=== PATIENT | female | born 1935 | race Caucasian/White ===

== ENCOUNTER → 2021-01-08 10:05 | Outpatient (BNVA) | payer MEDICARE, SELFPAY | PROVIDERS: Family Provider Family Medicine; PCP Family Medicine; Visit Provider Family Medicine | DX: B35.1 Tinea unguium (principal); E03.9 Hypothyroidism, unspecified; R53.83 Other fatigue; I48.0 Paroxysmal atrial fibrillation; M54.42 Lumbago with sciatica, left side; G89.29 Other chronic pain; I73.9 Peripheral vascular disease, unspecified; K21.9 Gastro-esophageal reflux disease without esophagitis; R53.82 Chronic fatigue, unspecified | CPT/HCPCS: 82607; 82652; 84439; 84443; 84481; 85025 ==

== ENCOUNTER → 2022-02-27 09:59 | Outpatient (BNVA) | payer MEDICARE, SELFPAY | PROVIDERS: Family Provider Family Medicine; Visit Provider Family Medicine | DX: I10 Essential (primary) hypertension (principal); R60.9 Edema, unspecified; E03.9 Hypothyroidism, unspecified; R53.83 Other fatigue; R53.82 Chronic fatigue, unspecified | CPT/HCPCS: 80048; 84439; 84443; 84481; 85025 ==

== ENCOUNTER 2022-08-22 10:34 | Outpatient (CLI) | payer MEDICARE, SELFPAY ==
--- NOTE | 2022-08-22 10:45 | USCV_ITS ---
Georgia Cerna Age: 86 Gender: F : 1935 Exam Date: 08/22/2022 10:40 Ordering Phys: Ramila Jasso MD Technologist: [place] [facility] [place]: fluid overload BP: 120 / 75 HR: 95 Rhythm: Sinus Technical Quality: Adequate MEASUREMENTS (Male / Female) Normal Values 2D ECHO LV Diastolic Diameter PLAX 4.5 cm 4.2 - 5.9 / 3.9 - 5.3 cm LV Systolic Diameter PLAX 2.9 cm IVS Diastolic Thickness 1.0 cm 0.6 - 1.0 / 0.6 - 0.9 cm IVS Systolic Thickness 1.8 cm LVPW Diastolic Thickness 1.1 cm 0.6 - 1.0 / 0.6 - 0.9 cm LVPW Systolic Thickness 1.0 cm LVOT Diameter 2.0 cm LV Ejection Fraction 2D Teich 64.7 % LV Ejection Fraction MOD 2C 58.9 % LV Ejection Fraction 2C AL 58.5 % LA Diameter 4.3 cm Aorta at Sinotubular Diameter 2.5 cm M-MODE Aortic Annulus Diameter 3.6 cm LA Ao Ratio MM 1.1 MV E Point Septal Separation 0.9 cm DOPPLER AV Peak Velocity 164.7 cm/s LVOT Peak Velocity 81.0 cm/s AV Area Cont Eq vti 1.3 cm squared AV Area Cont Eq pk 1.5 cm squared MV Area PHT 5.0 cm squared Mitral E to A Ratio 2.4 MV E' Velocity 69.0 cm/s Mitral E to MV E' Ratio 7.1 Mitral E to LV E' Lateral Ratio 7.0 Mitral E to LV E' Septal Ratio 7.1 TR Peak Velocity 319.3 cm/s TR Peak Gradient 40.8 mmHg TV Peak E Velocity 170.0 cm/s Right Atrial Pressure 3.0 mmHg Pulmonary Artery Systolic Pressu 43.8 mmHg RV Acceleration Time 0.1 s FINDINGS Left Ventricle Left ventricle is normal in size. LV systolic function is borderline normal with EF of 50 to 55%. No regional wall motion abnormalities are seen. Diastolic function is indeterminate because of atrial fibrillation. Right Ventricle Grossly normal Right Atrium Dilated Left Atrium Dilated Mitral Valve Structurally normal mitral valve. Moderate mitral regurgitation. Aortic Valve Aortic valve is thickened. Mild aortic stenosis with a mean gradient across aortic valve of 10 mmHg. Tricuspid Valve Moderate to severe tricuspid regurgitation. RVSP is 55 to 60 mmHg. This is consistent with moderate pulmonary hypertension Pulmonic Valve Not well-visualized Pericardium Normal pericardium without effusion. Aorta Normal ascending aorta dimension. IVC CONCLUSIONS LV systolic function is borderline normal with EF of 50 to 55%. Biatrial enlargement noted Moderate mitral regurgitation Aortic valve is thickened. Mild aortic stenosis with mean gradient across aortic valve of 10 mmHg Moderate to severe tricuspid regurgitation Moderate pulmonary hypertension Compared to prior echocardiogram from 07/13/2018, patient now has moderate to severe tricuspid regurgitation, mild aortic stenosis and pulmonary hypertension has progressed and is moderate now Golden Gross MD (Electronically Signed) Final Date: 25 August 2022 12:57 S
== END 2022-08-22 10:35 | disposition home or self-care (01) ==
LOC: RAD 10:35
PROVIDERS: PCP Family Medicine; Visit Provider Family Medicine
DX: E87.79 Other fluid overload (principal); I10 Essential (primary) hypertension; I08.3 Combined rheumatic disorders of mitral, aortic and tricuspid valves; I27.20 Pulmonary hypertension, unspecified
CPT/HCPCS: 93306

== ENCOUNTER → 2023-04-15 11:11 | Outpatient (BNVA) | payer MEDICARE, SELFPAY | PROVIDERS: PCP Family Medicine; Visit Provider Family Medicine | DX: E03.9 Hypothyroidism, unspecified (principal); E78.5 Hyperlipidemia, unspecified; I10 Essential (primary) hypertension; D50.0 Iron deficiency anemia secondary to blood loss (chronic) | CPT/HCPCS: 80053; 80061; 84443; 85025 ==

== ENCOUNTER → 2023-10-16 10:12 | Outpatient (BNVA) | payer MEDICARE, SELFPAY | PROVIDERS: PCP Family Medicine; Visit Provider Family Medicine | DX: K21.9 Gastro-esophageal reflux disease without esophagitis (principal); E78.5 Hyperlipidemia, unspecified; E03.9 Hypothyroidism, unspecified; M54.42 Lumbago with sciatica, left side; G89.29 Other chronic pain; I10 Essential (primary) hypertension; R60.9 Edema, unspecified; D64.9 Anemia, unspecified | CPT/HCPCS: 80048; 84439; 84443; 84481; 85025 ==

== ENCOUNTER → 2023-10-21 14:54 | Outpatient (BNVA) | payer MEDICARE, SELFPAY | PROVIDERS: PCP Family Medicine; Visit Provider Podiatrist Foot & Ankle Surgery | DX: L97.512 Non-pressure chronic ulcer of other part of right foot with fat layer exposed (principal); L60.3 Nail dystrophy; I73.9 Peripheral vascular disease, unspecified | CPT/HCPCS: 99203 ==

== ENCOUNTER → 2023-10-28 10:44 | Outpatient (BNVA) | payer MEDICARE, SELFPAY | PROVIDERS: PCP Family Medicine; Visit Provider Podiatrist Foot & Ankle Surgery | DX: L97.512 Non-pressure chronic ulcer of other part of right foot with fat layer exposed (principal); L60.3 Nail dystrophy; I73.9 Peripheral vascular disease, unspecified | CPT/HCPCS: 99213 ==

== ENCOUNTER → 2023-11-20 10:52 | Outpatient (BNVA) | payer MEDICARE, SELFPAY | PROVIDERS: PCP Family Medicine; Visit Provider Podiatrist Foot & Ankle Surgery | DX: L97.512 Non-pressure chronic ulcer of other part of right foot with fat layer exposed (principal); L60.3 Nail dystrophy; I73.9 Peripheral vascular disease, unspecified | CPT/HCPCS: 99213 ==

== ENCOUNTER → 2024-01-26 10:07 | Outpatient (BNVA) | payer MEDICARE, SELFPAY | PROVIDERS: PCP Family Medicine; Visit Provider Podiatrist Foot & Ankle Surgery | DX: L97.512 Non-pressure chronic ulcer of other part of right foot with fat layer exposed (principal); L60.3 Nail dystrophy; I73.9 Peripheral vascular disease, unspecified | CPT/HCPCS: 11721 ==

== ENCOUNTER 2024-02-18 23:05 | Inpatient (IN) | payer MEDICARE, SELFPAY ==
[2024-02-18 23:06] VITALS: BP 108/59; PULSE 87; RESP 18; TEMP 38.1; O2SAT 90; BMI 28.9
--- NOTE | 2024-02-18 23:20 | CTR_ITS ---
PROCEDURE INFORMATION: Exam: CT Head Without Contrast Exam date and time: 02/18/2024 11:47 PM Age: 88 years old Clinical indication: Altered mental status/memory loss; Additional info: Altered mental status, a fib, unresponsive TECHNIQUE: Imaging protocol: Computed tomography of the head without contrast. Radiation optimization: All CT scans at this facility use at least one of these dose optimization techniques: automated exposure control; mA and/or kV adjustment per patient size (includes targeted exams where dose is matched to clinical indication); or iterative reconstruction. COMPARISON: No relevant prior studies available. RADIATION DOSE METRICS: Total DLP (mGy-cm): 843.2 FINDINGS: Brain: No acute intra- or extra axial fluid collections are identified. The basal cisterns are patent. No mass effect or midline shift is seen. The manrique-white matter differentiation is normal. Periventricular hypoattenuation are nonspecific but likely the sequela of chronic small vessel ischemic disease. Cerebral ventricles: Moderate cerebral volume loss and ex vacuo dilation of the ventricles.. Paranasal sinuses: There is mild paranasal sinus disease.. Mastoid air cells: The mastoid air cells appear grossly clear. Orbital cavities: The patient is status post cataract extraction.. Bones/joints: No acute calvarial fracture is identified. Soft tissues: No soft tissue abnormalities identified. Vasculature: There are atherosclerotic calcifications of the carotid siphons and faintly the V4 segments of the vertebral arteries. CT/CT head wo con* [id number] IMPRESSION: 1. No evidence of acute intracranial hemorrhage, mass effect, or midline shift. 2. Please note that CT is insensitive to none hemorrhagic strokes an MRI of the brain should be considered if there is clinical concern for acute cerebral ischemia.
--- NOTE | 2024-02-18 23:20 | XRR_ITS ---
PROCEDURE INFORMATION: Exam: XR Chest Exam date and time: 02/18/2024 11:53 PM Age: 88 years old Clinical indication: Other: AMS, afib; Additional info: AMS fever TECHNIQUE: Imaging protocol: Radiologic exam of the chest. Views: 1 view. COMPARISON: CR XR chest 1V portable [id number] 07/12/2022 3:02 PM FINDINGS: Lungs: Numerous bilateral ill-defined small , subcentimeter nodular opacities throughout both lungs, significantly progressed compared to the prior with enlargement of the nodular opacities and interval development of new nodular opacities. The left CP angle is obscured which could be related to atelectasis, inflammation, pneumonia, or small pleural effusion. Pleural spaces: No pneumothorax. Heart/Mediastinum: There is cardiomegaly. Vasculature: The thoracic aorta is tortuous and atherosclerotic. Diaphragm: The left hemidiaphragm is elevated. Bones/joints: There are degenerative changes of the spine and shoulder joints. Post kyphoplasty changes are seen in the thoracolumbar spine. The bones are osteopenic. XR/XR chest 1V portable [id number] IMPRESSION: 1. Numerous bilateral ill-defined small, subcentimeter nodular opacities throughout both lungs, new/progressed compared to the prior. Finding is nonspecific. Findings could represent inflammation, or infection such as bronchopneumonia, sequela of pulmonary edema, or underlying pulmonary nodules. Continued attention on follow-up is recommended. 2. Cardiomegaly and mild pulmonary edema. 3. Post kyphoplasty changes in the thoracolumbar spine.
--- NOTE | 2024-02-18 23:20 | ECG_ITS ---
[facility] Test Date: 2024-02-18 Pat Name: Georgia Cerna Department: Room: Gender: Female [employer]: : 1935 Requested By: [facility] Order Number: [id number] Abrahan MD: Lata Wood M.D. Measurements Intervals [place] Rate: 74 P: 0 IN: 0 QRS: 121 QRSD: 110 T: 96 QT: 364 QTc: 405 Interpretive Statements ATRIAL FIBRILLATION POSSIBLE RIGHT VENTRICULAR HYPERTROPHY [SOME/ALL OF: PROMINENT R IN V1, LATE TRANSITION, RAD, OSCAR, SSS] MODERATE ST DEPRESSION [0.05+ mV ST DEPRESSION] INTERPRETATION BASED ON A DEFAULT AGE OF 40 YEARS Compared to ECG 07/12/2022 15:00:40 Atrial abnormality now present ST (T wave) deviation now present Right-axis deviation no longer present Myocardial infarct finding no longer present Electronically Signed On 02-19-2024 14:01:09 CDT by Lata Wood M.D. [id number]
--- NOTE | 2024-02-18 23:20 | ED_ITS ---
Documented by User: Juno Heart DO 02/19/24 05:45 HPI - General Adult 2 General: Chief complaint: Altered Mental Status Stated complaint: AMS Time Seen by Provider: 02/18/24 23:09 Limitations: altered mental status History of Present Illness: Patient presents to the ER via [facility] with decreased mental status. Patient has altered mental status and is only responsive to painful stimuli. Patient is normally able to walk talk and hold a coherent conversation. Today patient went to sleep around 1130 and was not bothered until about 9 PM when someone tried to wake her up and is unable to do that. Patient is only responsive to painful stimuli. She will flinch with pain. Patient is a DNR Review of Systems 2 General: Reports: ROS unobtainable due to mental status PFSH ED 2 PFSH: Medical History Peripheral edema Chronic constipation PVD (peripheral vascular disease) Atrial fibrillation GERD (gastroesophageal reflux disease) Hypothyroid Chronic low back pain Dyslipidemia Surgical History H/O knee surgery H/O: hysterectomy History of cholecystectomy History of bladder surgery Family History Other CAD (coronary artery disease) Stroke Social History Smoking and tobacco/nicotine status: never used tobacco/nicotine Alcohol intake: never Substance/Drug Use: never Female Reproductive History: Spontaneous abortions: No Physical Exam 2 HENMT: COMMON NORMALS: normocephalic, atraumatic, external ears normal and Normal external nose present; oral mucous membranes not moist (Dry mucous membranes) HEAD & SCALP: n ormocephalic and atraumatic NOSE: Normal external nose present EXTERNAL EAR: Yes external ears normal Eye: COMMON NORMALS: Equal, round and reactive pupils present PUPIL: Yes Equal, round and reactive pupils present Neck/C-Spine: COMMON NORMALS: no JVD Chest: COMMONS NORMALS: normal inspection of the chest and normal palpation of entire chest wall Resp: COMMON NORMALS: normal respiratory effort, No retractions, No use of accessory muscles and clear to auscultation bilaterally AUSCULTATION: clear to auscultation bilaterally Cardio: COMMON NORMALS: no JVD, regular rate, S1 normal heart sound present, S2 normal heart sound present, No clicks present (Cardio), No murmurs present (Cardio) and No rub (Cardio); negative for regular rhythm (Irregularly irregular rhythm) RATE: regular rate RHYTHM: abnormal rhythm (Irregularly irregular rhythm) HEART SOUNDS: S1 normal heart sound present and S2 normal heart sound present GI: COMMON NORMALS: Normal to inspection, nondistended, normoactive bowel sounds present, Soft to palpation, non-tender, No hepatosplenomegaly present and no masses PALPATION: Yes Soft to palpation and Yes No hepatosplenomegaly present Neuro: OTHER: Patient withdraws from painful stimuli otherwise is nonresponsive. Course 2 Reevaluation(s): Reevaluation #1: Upon reevaluating the patient patient after fluid and antibiotics patient is now alert oriented and is able to hold a conversation with you. Vital Signs: Vital signs: Vital Signs Temperature 99.9 F H 02/19/24 00:38 Pulse Rate 94 02/19/24 09:48 Respiratory Rate 20 H 02/19/24 09:48 Blood Pressure 86/59 02/19/24 09:48 Pulse Oximetry 95 02/19/24 09:48 Oxygen Delivery Me thod Room Air 02/19/24 08:51 Oxygen Flow Rate 2 02/19/24 08:01 MDM - General Adult Medical Decision Making Upon arrival patient was responsive only to painful stimuli. Workup was started. Patient was given 2 L bolus of fluids and Zosyn and 2 L of oxygen. Patient eventually came around where she is alert oriented and talking. Findings include chest x-ray that showed nonspecific nodular opacities throughout, chest CTA showed diffuse pulmonary vascular congestion with small bilateral effusions superimposed infection cannot be ruled out, head CT was negative, white count was normal, platelets were low at 71, ABG appeared decent. BUN/creatinine 34 and 1.6, lactic acid was 5.3 both before and after 2 L of fluid. Magnesium 1.6 total bilirubin 1.8 C-reactive protein 19, BNP 17,397, troponin baseline 40, 2-hour troponin 36.39, 6-hour troponin, 40.47 urinalysis showed infection with 40-55 white blood cells, 3+ bacteria, 2+ leukocyte Estrace, Dr. Lux was consulted who agreed to place patient inpatient for further evaluation and treatment. Differential Diagnosis Sepsis, pneumonia, stroke Medical Records I reviewed the patient's medical records. Lab Data I reviewed the patient's lab results. 02/18/24 23:34 02/18/24 23:34 Radiology Impressions Chest X-Ray 02/18/24 23:20 IMPRESSION: 1. Numerous bilateral ill-defined small, subcentimeter nodular opacities throughout both lungs, new/progressed compared to the prior. Finding is nonspecific. Findings could represent inflammation, or infection such as bronchopneumonia, sequela of pulmonary edema, or underlying pulmonary nodules. Continued attention on follow-up is recommended. 2. Cardiomegaly and mild pulmonary edema. 3. Post kyphoplasty changes in the thoracolumbar spine. Head CT 02/18/24 23:20 IMPRESSION: 1. No evidence of acute intracranial hemorrhage, mass effect, or midline shift. 2. Please note that CT is insensitive to none hemorrhagic strokes an MRI of the brain should be considered if there is clinical concern for acute cerebral ischemia. Chest CTA 02/19/24 01:35 IMPRESSION: 1. Limited examination due to contrast timing and artifact, no saddle pulmonary embolus. No pulmonary embolus within the main pulmonary arteries. No secondary evidence to suggest hemodynamically significant pulmonary embolus. 2. Diffuse pulmonary vascular congestion with associated small bilateral pleural effusions and compressive atelectasis. Superimposed infection can not be ruled out. 3. Age-indeterminate wedge deformities of the T11 and T9 vertebral bodies. Correlate with point tenderness. 4. Additional findings as above. COMMENTS: Consistent with the [employer]'s Incidental Findings Committee white paper (J Am Nuria Radiol 2018): Any incidental renal lesion less than 1 cm or classified as too small to characterize, or any incidental cystic renal lesion characterized as simple-appearing, is likely benign. No follow-up imaging is recommended for these lesions per consensus recommendations based on imaging criteria. Abdomen/Pelvis CT 02/19/24 04:53 IMPRESSION: 1. Retained contrast of the left renal cortex with associated [id number] left hydronephrosis as well as prominence of the proximal left ureter. At the proximal left ureter there are ill-defined regions of nodular soft tissue density suggesting possible underlying obstructing mass/lesion. Three-phase CT can be obtained for better characterization. 2. Findings consistent with cirrhosis and portal hypertension. 3. Mild scattered colonic wall thickening which may be result from portal hypertension, mild colitis can present similarly. 4. Please see concurrently performed CT pulmonary angiogram for intrathoracic findings and impression. 5. Adnexal cysts as detailed above. COMMENTS: Consistent with the [employer]'s Incidental Findings Committee white paper (J Am Nuria Radiol 2018): Any incidental renal lesion less than 1 cm or classified as too small to characterize, or any incidental cystic renal lesion characterized as simple-appearing, is likely benign. No follow-up imaging is recommended for these lesions per consensus recommendations based on imaging criteria. Laboratory Results WBC 10.15 10^3/uL (3.29-11.43) 02/18/24 23:34 RBC 3.77 10^6/uL (3.85-5.65) L 02/18/24 23:34 Hgb 12.70 g/dL (11.27-16.99) 02/18/24 23:34 Hct 38.8 % (36-47) 02/18/24 23:34 MCV 102.9 fl (85-98) H 02/18/24 23:34 MCH 33.7 pg (27-33) H 02/18/24 23:34 MCHC 32.7 g/dL (30-55) 02/18/24 23:34 RDW 15.9 % (12.1-15.1) H 02/18/24 23:34 Plt Count 71 10^3/cmm (157-399) L 02/18/24 23:34 MPV 10.7 fL (7.4-10.4) H 02/18/24 23:34 Lymph % (Auto) Not Reportable 02/18/24 23:34 [place] % (Auto) Not Reportable 02/18/24 23:34 Lymph # (Auto) Not Reportable 02/18/24 23:34 [place] # (Auto) Not Reportable 02/18/24 23:34 Total Counted 100 (0-100) 02/18/24 23:34 Atypical Lymphs % Not Reportable 02/18/24 23:34 Absolute Neutrophils 9.3 10^3/cmm (1.4-6.5) H 02/18/24 23:34 Segmented Neutrophils 75 % 02/18/24 23:34 Abs Segm Neuts (Man) 7.6 10/cmm (1.6-7.1) H 02/18/24 23:34 Band Neutrophils 17.0 % 02/18/24 23:34 Abs Band Neuts (Man) 1.7 10^3/cmm (0.0-1.2) H 02/18/24 23:34 Lymphocytes (Manual) 3 % 02/18/24 23:34 Monocytes (Manual) 5.0 % 02/18/24 23:34 Absolute Monocytes 0.5 10^3/cmm (0.1-0.6) 02/18/24 23:34 Eosinophils (Manual) 0 % 02/18/24 23:34 Absolute Eosinophils 0.0 10^3/cmm (0.0-0.7) 02/18/24 23:34 Basophils (Manual) 0.0 % 02/18/24 23:34 Absolute Basophils 0.0 10^3/cmm (0.0-0.2) 02/18/24 23:34 Toxic Vacuolation Trace 02/18/24 23:34 Platelet Estimate Decreased (Normal) L 02/18/24 23:34 PT 16.00 SECONDS (12.1-14.9) H 02/18/24 23:34 INR 1.24 (0.8-1.2) H 02/18/24 23:34 Specimen Type Arterial 02/18/24 23:30 Sample Site Radial, left 02/18/24 23:30 ABG pH 7.43 (7.35-7.45) 02/18/24 23:30 ABG pCO2 34.3 mmHg (35-45) L 02/18/24 23:30 ABG pO2 68.7 mmHg (80.0-100.0) L 02/18/24 23:30 ABG HCO3 22.9 mmol/L (22-26) 02/18/24 23:30 ABG O2 Saturation 95.2 02/18/24 23:30 ABG Base Excess -0.9 mmol/L (-2.0-2.0) 02/18/24 23:30 Luis Manuel Test Pos 02/18/24 23:30 A-a O2 Gradient 4.7 mmHg (5-10) L 02/18/24 23:30 Hematocrit 39.5 % (37-47) 02/18/24 23:30 Hgb O2 Saturation 93.1 % (95-100) L 02/18/24 23:30 Carboxyhemoglobin 1.5 %THgb (0.4-20.1) 02/18/24 23:30 Methemoglobin 0.8 % (0.4-1.5) 02/18/24 23:30 Total Hemoglobin 12.9 g/dL (12-16) 02/18/24 23:30 Sodium 148.0 mmol/L (131-143) H 02/18/24 23:30 Potassium 3.9 mmol/L (3.5-5.0) 02/18/24 23:30 Glucose 109.0 mg/dL (70-115) 02/18/24 23:30 Ionized Calcium 1.2 mmol/L (1.1-1.4) 02/18/24 23:30 O2 Delivery Device Nc 02/18/24 23:30 O2 Liters/Min 2.0 % 02/18/24 23:30 Painter Touch Up ID [email or web address] 02/18/24 23:30 Sodium 145 mmol/L (136-145) 02/18/24 23:34 Potassium 4.1 mmol/L (3.5-5.1) 02/18/24 23:34 Chloride 106 mmol/L (98-107) 02/18/24 23:34 Carbon Dioxide 22 mmol/L (22-29) 02/18/24 23:34 Anion Gap 21.1 (5-19) H 02/18/24 23:34 BUN 34 mg/dL (8-23) H 02/18/24 23:34 Creatinine 1.6 mg/dL (0.5-0.9) H 02/18/24 23:34 GFR Calculation Not Reportable 02/18/24 23:34 Glucose 113 mg/dL (65-115) 02/18/24 23:34 Calculated Osmolality 308 mOsm/kg (285-295) H 02/18/24 23:34 Lactic Acid 5.3 mmol/L (0.5-2.2) H* 02/18/24 23:34 Lactic Acid (Sepsis) 5.3 mmol/L (0.5-2.2) H* 02/19/24 02:06 Calcium 9.8 mg/dL (8.5-10.5) 02/18/24 23:34 Phosphorus 3.0 mg/dL (2.5-4.5) 02/18/24 23:34 Magnesium 1.6 mg/dL (1.7-2.3) L 02/18/24 23:34 Total Bilirubin 1.8 mg/dL (0.15-1.2) H 02/18/24 23:34 AST 58 U/L (0-32) H 02/18/24 23:34 ALT 34 U/L (0-33) H 02/18/24 23:34 Alkaline Phosphatase 113 U/L (35-105) H 02/18/24 23:34 Ammonia 53 umol/L (11-51) H 02/19/24 05:43 Troponin T Baseline 34 ng/L (0-10) H 02/18/24 22:07 Troponin T 120 Minute 36.39 ng/L (0-10) H 02/19/24 00:35 Delta Troponin T 2.39 ABS# (0-10) 02/19/24 00:35 Troponin T Hi Sens 6Hr 40.47 ng/L (0-10) H 02/19/24 04:05 Troponin T Hi Sens 6Hr Delta 6.47 ng/L (0-12) 02/19/24 04:05 C-Reactive Protein 19.0 mg/L (0.0-4.9) H 02/18/24 23:34 NT-Pro-B Natriuret Pep 04555 pg/mL (0-450) H 02/18/24 23:34 Total Protein 5.9 g/dL (6.6-8.7) L 02/18/24 23:34 Albumin 3.3 g/dL (3.5-5.2) L 02/18/24 23:34 Globulin 2.6 g/dL (1.3-4.6) 02/18/24 23:34 Procalcitonin 24.82 ng/mL (0-0.5) H 02/18/24 23:34 TSH 0.67 uIU/mL (0.27-4.20) 02/18/24 23:34 Urine Color Dark yellow (Yellow) 02/18/24 23:30 Urine Appearance Cloudy (CLEAR) A 02/18/24 23:30 Urine pH 8 (5-7) H 02/18/24 23:30 Ur Specific [place] 1.015 (1.005-1.030) 02/18/24 23:30 Urine Protein 1+ (Negative) H 02/18/24 23:30 Urine Glucose (UA) Norm (Normal) 02/18/24 23:30 Urine Ketones 1+ (Negative) H 02/18/24 23:30 Urine Blood 3+ (Negative) H 02/18/24 23:30 Urine Nitrate Negative (Negative) 02/18/24 23:30 Urine Bilirubin 1+ (Negative) H 02/18/24 23:30 Prot Sulfosalicylic Acd Positive (Negative) 02/18/24 23:30 Urine Urobilinogen 4 mg/dL (Negative) H 02/18/24 23:30 Ur Leukocyte Esterase 2+ (Negative) H 02/18/24 23:30 Urine RBC 5-10 /hpf (0-2) H 02/18/24 23:30 Urine WBC 40-55 /hpf (0-5) H 02/18/24 23:30 Ur Squamous Epith Cells 5-10 /hpf (0-5) H 02/18/24 23:30 Amorphous Sediment Not Reportable 02/18/24 23:30 Urine Bacteria 3+ /hpf (NONE) H 02/18/24 23:30 Urine Mucus 3+ /hpf 02/18/24 23:30 Influenza Type A Ag negative (Negative) 02/19/24 00:06 Influenza Type B Ag negative (Negative) 02/19/24 00:06 SARS-CoV-2 Ag (Rapid) negative (Negative) 02/19/24 00:06 All radiology interpretation(s) finalized by discharge Discharge Plan Discharge Admit Provider: Ricardo Schafer Clinical Impression: Altered mental status, Urinary tract infection, Pulmonary edema, Acute hypoxic respiratory failure, Thrombocytopenia, Acute kidney injury Condition: Stable Sign Out Sign Out Data: Patient Sign Out occurred on 02/19/24 at 06:18. Patient's care was discussed, and care was transferred from Juno Heart DO to Surjit Singletary DO. Coding Level of Care Code ED [employer] Documented by User: Surjit Singletary DO 02/19/24 09:56 HPI - General Adult 2 General: Chief complaint: Altered Mental Status Stated complaint: AMS Time Seen by Provider: 02/18/24 23:09 [facility] ED 2 PFSH: Medical History Peripheral edema Chronic constipation PVD (peripheral vascular disease) Atrial fibrillation GERD (gastroesophageal reflux disease) Hypothyroid Chronic low back pain Dyslipidemia Surgical History H/O knee surgery H/O: hysterectomy History of cholecystectomy History of bladder surgery Family History Other CAD (coronary artery disease) Stroke Social History Smoking and tobacco/nicotine status: never used tobacco/nicotine Alcohol intake: never Substance/Drug Use: never Course 2 Vital Signs: Vital signs: Vital Signs Temperature 99.9 F H 02/19/24 00:38 Pulse Rate 94 02/19/24 09:48 Respiratory Rate 20 H 02/19/24 09:48 Blood Pressure 86/59 02/19/24 09:48 Pulse Oximetry 95 02/19/24 09:48 Oxygen Delivery Me thod Room Air 02/19/24 08:51 Oxygen Flow Rate 2 02/19/24 08:01 [facility] - General Adult Medical Decision Making Upon arrival patient was responsive only to painful stimuli. Workup was started. Patient was given 2 L bolus of fluids and Zosyn and 2 L of oxygen. Patient eventually came around where she is alert oriented and talking. Findings include chest x-ray that showed nonspecific nodular opacities throughout, chest CTA showed diffuse pulmonary vascular congestion with small bilateral effusions superimposed infection cannot be ruled out, head CT was negative, white count was normal, platelets were low at 71, ABG appeared decent. BUN/creatinine 34 and 1.6, lactic acid was 5.3 both before and after 2 L of fluid. Magnesium 1.6 total bilirubin 1.8 C-reactive protein 19, BNP 17,397, troponin baseline 40, 2-hour troponin 36.39, 6-hour troponin, 40.47 urinalysis showed infection with 40-55 white blood cells, 3+ bacteria, 2+ leukocyte Estrace, Dr. Lux was consulted who agreed to place patient inpatient for further evaluation and treatment. Care assumed at change of shift. CT showed proximal ureteral partial obstruction Dr. Heart advised that the family wanted to be contacted regarding whether or not they would transfer. I contacted first he deferred decision-making to his daughter Marlen we contacted her reviewed findings with her and she asked for time to discuss with the remainder of her family members. She called proc approximately an hour later and stated they did not want her to be transferred they understood and reiterated to them again that if there is an obstruction without it being treated may be very difficult for her to recover from this area outlined for that she is septic and some mild failure as well. They expressed understanding of this and wished to be treated conservatively here. Advised that her pressure has been low and she may require IV pressors which might require central line they were okay with that. Reviewed with them that central line is not that much more invasive than a ureteral stent however they do not wish for her to be transferred and are tending more towards comfort cares if the antibiotics do not improve. Will admit for CHF exacerbation sepsis cystitis acute delirium on the overlying chronic dementia. Discussed Dr. Schafer he is also discussed with the patient and with the family members. Conservative treatments for now family expressed understanding that conservative treatments may not be adequate for her to recover and is a are comfortable with this. I did also mention to the daughter the concept of comfort cares which they will consider. Patient is much more awake than what Dr. Heart described on [facility] assumed. She is able to answer some questions but question whether or not she is fully cognizant enough to make her own medical decisions at this point. Lab Data 02/18/24 23:34 02/18/24 23:34 Radiology Impressions Chest X-Ray 02/18/24 23:20 IMPRESSION: 1. Numerous bilateral ill-defined small, subcentimeter nodular opacities throughout both lungs, new/progressed compared to the prior. Finding is nonspecific. Findings could represent inflammation, or infection such as bronchopneumonia, sequela of pulmonary edema, or underlying pulmonary nodules. Continued attention on follow-up is recommended. 2. Cardiomegaly and mild pulmonary edema. 3. Post kyphoplasty changes in the thoracolumbar spine. Head CT 02/18/24 23:20 IMPRESSION: 1. No evidence of acute intracranial hemorrhage, mass effect, or midline shift. 2. Please note that CT is insensitive to none hemorrhagic strokes an MRI of the brain should be considered if there is clinical concern for acute cerebral ischemia. Chest CTA 02/19/24 01:35 IMPRESSION: 1. Limited examination due to contrast timing and artifact, no saddle pulmonary embolus. No pulmonary embolus within the main pulmonary arteries. No secondary evidence to suggest hemodynamically significant pulmonary embolus. 2. Diffuse pulmonary vascular congestion with associated small bilateral pleural effusions and compressive atelectasis. Superimposed infection can not be ruled out. 3. Age-indeterminate wedge deformities of the T11 and T9 vertebral bodies. Correlate with point tenderness. 4. Additional findings as above. COMMENTS: Consistent with the [place] [employer]'s Incidental Findings Committee white paper (J Am Nuria Radiol 2018): Any incidental renal lesion less than 1 cm or classified as too small to characterize, or any incidental cystic renal lesion characterized as simple-appearing, is likely benign. No follow-up imaging is recommended for these lesions per consensus recommendations based on imaging criteria. Abdomen/Pelvis CT 02/19/24 04:53 IMPRESSION: 1. Retained contrast of the left renal cortex with associated [id number] left hydronephrosis as well as prominence of the proximal left ureter. At the proximal left ureter there are ill-defined regions of nodular soft tissue density suggesting possible underlying obstructing mass/lesion. Three-phase CT can be obtained for better characterization. 2. Findings consistent with cirrhosis and portal hypertension. 3. Mild scattered colonic wall thickening which may be result from portal hypertension, mild colitis can present similarly. 4. Please see concurrently performed CT pulmonary angiogram for intrathoracic findings and impression. 5. Adnexal cysts as detailed above. COMMENTS: Consistent with the [place] [employer]'s Incidental Findings Committee white paper (J Am Nuria Radiol 2018): Any incidental renal lesion less than 1 cm or classified as too small to characterize, or any incidental cystic renal lesion characterized as simple-appearing, is likely benign. No follow-up imaging is recommended for these lesions per consensus recommendations based on imaging criteria. Laboratory Results WBC 10.15 10^3/uL (3.29-11.43) 02/18/24 23:34 RBC 3.77 10^6/uL (3.85-5.65) L 02/18/24 23:34 Hgb 12.70 g/dL (11.27-16.99) 02/18/24 23:34 Hct 38.8 % (36-47) 02/18/24 23:34 MCV 102.9 fl (85-98) H 02/18/24 23:34 MCH 33.7 pg (27-33) H 02/18/24 23:34 MCHC 32.7 g/dL (30-55) 02/18/24 23:34 RDW 15.9 % (12.1-15.1) H 02/18/24 23:34 Plt Count 71 10^3/cmm (157-399) L 02/18/24 23:34 MPV 10.7 fL (7.4-10.4) H 02/18/24 23:34 Lymph % (Auto) Not Reportable 02/18/24 23:34 [place] % (Auto) Not Reportable 02/18/24 23:34 Lymph # (Auto) Not Reportable 02/18/24 23:34 [place] # (Auto) Not Reportable 02/18/24 23:34 Total Counted 100 (0-100) 02/18/24 23:34 Atypical Lymphs % Not Reportable 02/18/24 23:34 Absolute Neutrophils 9.3 10^3/cmm (1.4-6.5) H 02/18/24 23:34 Segmented Neutrophils 75 % 02/18/24 23:34 Abs Segm Neuts (Man) 7.6 10/cmm (1.6-7.1) H 02/18/24 23:34 Band Neutrophils 17.0 % 02/18/24 23:34 Abs Band Neuts (Man) 1.7 10^3/cmm (0.0-1.2) H 02/18/24 23:34 Lymphocytes (Manual) 3 % 02/18/24 23:34 Monocytes (Manual) 5.0 % 02/18/24 23:34 Absolute Monocytes 0.5 10^3/cmm (0.1-0.6) 02/18/24 23:34 Eosinophils (Manual) 0 % 02/18/24 23:34 Absolute Eosinophils 0.0 10^3/cmm (0.0-0.7) 02/18/24 23:34 Basophils (Manual) 0.0 % 02/18/24 23:34 Absolute Basophils 0.0 10^3/cmm (0.0-0.2) 02/18/24 23:34 Toxic Vacuolation Trace 02/18/24 23:34 Platelet Estimate Decreased (Normal) L 02/18/24 23:34 PT 16.00 SECONDS (12.1-14.9) H 02/18/24 23:34 INR 1.24 (0.8-1.2) H 02/18/24 23:34 Specimen Type Arterial 02/18/24 23:30 Sample Site Radial, left 02/18/24 23:30 ABG pH 7.43 (7.35-7.45) 02/18/24 23:30 ABG pCO2 34.3 mmHg (35-45) L 02/18/24 23:30 ABG pO2 68.7 mmHg (80.0-100.0) L 02/18/24 23:30 ABG HCO3 22.9 mmol/L (22-26) 02/18/24 23:30 ABG O2 Saturation 95.2 02/18/24 23:30 ABG Base Excess -0.9 mmol/L (-2.0-2.0) 02/18/24 23:30 Luis Manuel Test Pos 02/18/24 23:30 A-a O2 Gradient 4.7 mmHg (5-10) L 02/18/24 23:30 Hematocrit 39.5 % (37-47) 02/18/24 23:30 Hgb O2 Saturation 93.1 % (95-100) L 02/18/24 23:30 Carboxyhemoglobin 1.5 %THgb (0.4-20.1) 02/18/24 23:30 Methemoglobin 0.8 % (0.4-1.5) 02/18/24 23:30 Total Hemoglobin 12.9 g/dL (12-16) 02/18/24 23:30 Sodium 148.0 mmol/L (131-143) H 02/18/24 23:30 Potassium 3.9 mmol/L (3.5-5.0) 02/18/24 23:30 Glucose 109.0 mg/dL (70-115) 02/18/24 23:30 Ionized Calcium 1.2 mmol/L (1.1-1.4) 02/18/24 23:30 O2 Delivery Device Nc 02/18/24 23:30 O2 Liters/Min 2.0 % 02/18/24 23:30 Painter Touch Up ID [email or web address] 02/18/24 23:30 Sodium 145 mmol/L (136-145) 02/18/24 23:34 Potassium 4.1 mmol/L (3.5-5.1) 02/18/24 23:34 Chloride 106 mmol/L (98-107) 02/18/24 23:34 Carbon Dioxide 22 mmol/L (22-29) 02/18/24 23:34 Anion Gap 21.1 (5-19) H 02/18/24 23:34 BUN 34 mg/dL (8-23) H 02/18/24 23:34 Creatinine 1.6 mg/dL (0.5-0.9) H 02/18/24 23:34 GFR Calculation Not Reportable 02/18/24 23:34 Glucose 113 mg/dL (65-115) 02/18/24 23:34 Calculated Osmolality 308 mOsm/kg (285-295) H 02/18/24 23:34 Lactic Acid 5.3 mmol/L (0.5-2.2) H* 02/18/24 23:34 Lactic Acid (Sepsis) 5.3 mmol/L (0.5-2.2) H* 02/19/24 02:06 Calcium 9.8 mg/dL (8.5-10.5) 02/18/24 23:34 Phosphorus 3.0 mg/dL (2.5-4.5) 02/18/24 23:34 Magnesium 1.6 mg/dL (1.7-2.3) L 02/18/24 23:34 Total Bilirubin 1.8 mg/dL (0.15-1.2) H 02/18/24 23:34 AST 58 U/L (0-32) H 02/18/24 23:34 ALT 34 U/L (0-33) H 02/18/24 23:34 Alkaline Phosphatase 113 U/L (35-105) H 02/18/24 23:34 Ammonia 53 umol/L (11-51) H 02/19/24 05:43 Troponin T Baseline 34 ng/L (0-10) H 02/18/24 22:07 Troponin T 120 Minute 36.39 ng/L (0-10) H 02/19/24 00:35 Delta Troponin T 2.39 ABS# (0-10) 02/19/24 00:35 Troponin T Hi Sens 6Hr 40.47 ng/L (0-10) H 02/19/24 04:05 Troponin T Hi Sens 6Hr Delta 6.47 ng/L (0-12) 02/19/24 04:05 C-Reactive Protein 19.0 mg/L (0.0-4.9) H 02/18/24 23:34 NT-Pro-B Natriuret Pep 85588 pg/mL (0-450) H 02/18/24 23:34 Total Protein 5.9 g/dL (6.6-8.7) L 02/18/24 23:34 Albumin 3.3 g/dL (3.5-5.2) L 02/18/24 23:34 Globulin 2.6 g/dL (1.3-4.6) 02/18/24 23:34 Procalcitonin 24.82 ng/mL (0-0.5) H 02/18/24 23:34 TSH 0.67 uIU/mL (0.27-4.20) 02/18/24 23:34 Urine Color Dark yellow (Yellow) 02/18/24 23:30 Urine Appearance Cloudy (CLEAR) A 02/18/24 23:30 Urine pH 8 (5-7) H 02/18/24 23:30 Ur Specific [place] 1.015 (1.005-1.030) 02/18/24 23:30 Urine Protein 1+ (Negative) H 02/18/24 23:30 Urine Glucose (UA) Norm (Normal) 02/18/24 23:30 Urine Ketones 1+ (Negative) H 02/18/24 23:30 Urine Blood 3+ (Negative) H 02/18/24 23:30 Urine Nitrate Negative (Negative) 02/18/24 23:30 Urine Bilirubin 1+ (Negative) H 02/18/24 23:30 Prot Sulfosalicylic Acd Positive (Negative) 02/18/24 23:30 Urine Urobilinogen 4 mg/dL (Negative) H 02/18/24 23:30 Ur Leukocyte Esterase 2+ (Negative) H 02/18/24 23:30 Urine RBC 5-10 /hpf (0-2) H 02/18/24 23:30 Urine WBC 40-55 /hpf (0-5) H 02/18/24 23:30 Ur Squamous Epith Cells 5-10 /hpf (0-5) H 02/18/24 23:30 Amorphous Sediment Not Reportable 02/18/24 23:30 Urine Bacteria 3+ /hpf (NONE) H 02/18/24 23:30 Urine Mucus 3+ /hpf 02/18/24 23:30 Influenza Type A Ag negative (Negative) 02/19/24 00:06 Influenza Type B Ag negative (Negative) 02/19/24 00:06 SARS-CoV-2 Ag (Rapid) negative (Negative) 02/19/24 00:06 Discharge Plan Discharge Admit Provider: Ricardo Schafer Clinical Impression: Altered mental status, Urinary tract infection, Pulmonary edema, Acute hypoxic respiratory failure, Thrombocytopenia, Acute kidney injury Condition: Stable Sign Out Sign Out Data: Patient Sign Out occurred on 02/19/24 at 06:18. Patient's care was discussed, and care was transferred from Juno Heart DO to Surjit Singletary DO. Coding Level of Care Code ED Power Line Installer And Repairer for Frances Ochoa
[2024-02-18 23:40] LABS: Troponin(5th) Baseline 34 ng/L (0-10)
[2024-02-18 23:40] LABS: Hematocrit 38.8 % (36-47); Mean Corpuscular HGB Conc 32.7 g/dL (30-55); Mean Corpuscular Hemoglobin 33.7 pg (27-33); Mean Corpuscular Volume 102.9 fl (85-98); Mean Platelet Volume 10.7 fL (7.4-10.4); Platelet Count 71 10^3/cmm (157-399); Red Blood Count 3.77 10^6/uL (3.85-5.65); Red Cell Distribution Width 15.9 % (12.1-15.1); White Blood Count 10.15 10^3/uL (3.29-11.43)
[2024-02-18 23:42] LABS: ABG PCO2 34.3 mmHg (35-45); ABG PH Result 7.43 (7.35-7.45); Alveolar-Arterial Oxygen Gradi 4.7 mmHg (5-10); Arterial Blood Gas Hematocrit 39.5 % (37-47); Base Excess ABG -0.9 mmol/L (-2.0-2.0); Blood Gas Allen Test Pos; Blood Gas Sample Site Radial, left; Blood Gas Sample Type Arterial; Carboxyhemoglobin 1.5 %THgb (0.4-20.1); HCO3 ABG 22.9 mmol/L (22-26); HGB O2 Sat 93.1 % (95-100); Ionized Calcium Level - ABG 1.2 mmol/L (1.1-1.4); Methemoglobin 0.8 % (0.4-1.5); Oxygen Device NC; Oxygen Saturation ABG 95.2; PO2 ABG 68.7 mmHg (80.0-100.0); Potassium Level - ABG 3.9 mmol/L (3.5-5.0); Total Hemoglobin 12.9 g/dL (12-16)
[2024-02-18 23:52] LABS: INR 1.24 (0.8-1.2)
[2024-02-18 23:58] LABS: Lactic Sepsis W/Reflex 5.3 mmol/L (0.5-2.2)
[2024-02-19] VITALS (71 sets, daily range): BP systolic 66–159; BP diastolic 38–123; PULSE 66–169; RESP 12–38; TEMP 36.6–37.7; O2SAT 83–99; BMI 28.9
[2024-02-19 00:05] LABS: Absolute Neutrophil 9.3 10^3/cmm (1.4-6.5); Absolute Segmented Neutrophil 7.6 10/cmm (1.6-7.1); Band Neutrophils Absolute 1.7 10^3/cmm (0.0-1.2); Eosinophils 0 %; Lymphocytes 3 %; Monocytes Absolute 0.5 10^3/cmm (0.1-0.6); Platelet Estimate Decreased (Normal); Segmented Neutrophils 75 %; Slide Review Slide Review Perform; Total Cells Counted 100 (0-100); Toxic Vacuolation TRACE
[2024-02-19 00:07] LABS: NT Pro B Type Natriuretic Pept 17397 pg/mL (0-450); Procalcitonin 24.82 ng/mL (0-0.5); Thyroid Stimulating Hormone 0.67 uIU/mL (0.27-4.20)
[2024-02-19 00:10] LABS: Add Urine Microscopic? YES; Bilirubin Urine 1+ (Negative); Blood Urine 3+ (Negative); Glucose Urine UA Norm (Normal); Ketones Urine 1+ (Negative); Leukocyte Esterase Urine 2+ (Negative); Nitrate Urine Negative (Negative); Protein Urine 1+ (Negative); Specific Gravity, Urine 1.015 (1.005-1.030); Sulfosalicylic Acid Urine Positive (Negative); Urine Appearance Cloudy (CLEAR); Urine Color Dark Yellow (Yellow); Urobilinogen Urine 4 mg/dL (Negative); pH Urine 8 (5-7)
[2024-02-19 00:11] LABS: Add Urine Culture? Yes; Bacteria Urine 3+ /hpf; Mucus Urine 3+ /hpf; WBC Urine 40-55 /hpf (0-5)
[2024-02-19] MEDS: sodium chloride 0.9% 1,000 ML 999 ML IV (00:16)
[2024-02-19 00:18] LABS: Alanine Aminotransferase 34 U/L (0-33); Albumin Level 3.3 g/dL (3.5-5.2); Alkaline Phosphatase 113 U/L (35-105); Anion Gap 21.1 (5-19); Aspartate Amino Transferase 58 U/L (0-32); Blood Urea Nitrogen 34 mg/dL (8-23); Calcium 9.8 mg/dL (8.5-10.5); Carbon Dioxide 22 mmol/L (22-29); Chloride 106 mmol/L (98-107); Creatinine Clr Calc Pharmacy 21.2385; Globulin 2.6 g/dL (1.3-4.6); Glucose 113 mg/dL (65-115); Magnesium 1.6 mg/dL (1.7-2.3); Osmolality Calculated 308 mOsm/kg (285-295); Potassium 4.1 mmol/L (3.5-5.1); Sodium 145 mmol/L (136-145); Total Bilirubin 1.8 mg/dL (0.15-1.2); Total Protein 5.9 g/dL (6.6-8.7)
[2024-02-19 00:33] LABS: Influenza A by IFA negative (Negative); Influenza B by IFA negative (Negative); SARS Covid-2 Antigen negative (Negative)
[2024-02-19] MEDS: acetaminophen 1,000 MG/100 ML PIGGYBACK 400 MG IV (00:38)
[2024-02-19 01:04] LABS: Troponin 5 2HR 36.39 ng/L (0-10); Troponin 5 2HR Delta 2.39 ABS# (0-10)
[2024-02-19] MEDS: piperacillin-tazobactam 3.375 GM in sodium chloride 0.9% (plus) 50 ML IV (01:11)
--- NOTE | 2024-02-19 01:17 | PC.NURSE ---
Nurse updated patient's daughter, Gerda, on patient status and likelihood of being admitted for treatment of infection. Daughter verbalized understanding and stated that she would like updates on patient status later on as they came.
--- NOTE | 2024-02-19 01:20 | ECG_ITS ---
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 Measurements Intervals [place] Rate: 68 P: 228 AZ: 177 QRS: 116 QRSD: 104 T: 0 QT: 377 QTc: 402 Interpretive Statements Possible atrial fibrillation Poor R wave progression Compared to ECG 02/18/2024 23:16:59 Because of the heavy baseline artifact, comparison is difficult Electronically Signed On 02-20-2024 17:16:12 CDT by Lata Wood M.D. [email or web address]
[2024-02-19 01:24] LABS: Reflex Lactate Order REFLEX LACTIC ORDERD
--- NOTE | 2024-02-19 01:35 | CTR_ITS ---
PROCEDURE INFORMATION: Exam: CTA Chest With Contrast Exam date and time: 02/19/2024 1:52 AM Age: 88 years old Clinical indication: Shortness of breath; Additional info: Abnormal cxr, fever, AMS, a fib TECHNIQUE: Imaging protocol: Computed tomographic angiography of the chest with contrast. Exam focused on the arteries. 3D rendering (Not supervised by radiologist): MIP and/or 3D reconstructed images were created by the technologist. Radiation optimization: All CT scans at this facility use at least one of these dose optimization techniques: automated exposure control; mA and/or kV adjustment per patient size (includes targeted exams where dose is matched to clinical indication); or iterative reconstruction. Contrast material: OMNI 350; Contrast volume: 100 ml; Contrast route: INTRAVENOUS (IV); COMPARISON: CR (CHEST, ) 02/18/2024 11:53 PM RADIATION DOSE METRICS: Total DLP (mGy-cm): 312.9 FINDINGS: Pulmonary arteries: Contrast bolus timing and artifact precludes characterization of the segmental and subsegmental pulmonary arteries. No main or saddle pulmonary embolus. Extensive dilation of pulmonary vasculature throughout the bilateral lung gomez. Aorta: Diffuse severe atherosclerotic disease of the visualized aorta and its major branches. Aortic annulus calcifications. Veins: Contrast is seen refluxing into the IVC. Lungs: Hblu-oihnguh-fbkk-right atelectasis. Pleural spaces: Small bilateral pleural effusions. Heart: Mitral annulus calcifications. Aortic valve calcifications. Coronary arteries: Moderate coronary atherosclerotic disease. Lymph nodes: Unremarkable. No enlarged lymph nodes. Liver: Punctate liver granulomas. Gallbladder and bile ducts: Status post cholecystectomy. Spleen: Punctate splenic granulomas. Kidneys and ureters: Simple left renal cyst.1 Bones/joints: Severe degenerative change of the visualized osseous structures. Multiple wedge deformities of the visualized spine with intervention changes at T12-L2. Wedge deformities at T11 and T9 without intervention, age-indeterminate. Soft tissues: Diffuse body wall edema. CT/CT angio chest PE protcl [id number] IMPRESSION: 1. Limited examination due to contrast timing and artifact, no saddle pulmonary embolus. No pulmonary embolus within the main pulmonary arteries. No secondary evidence to suggest hemodynamically significant pulmonary embolus. 2. Diffuse pulmonary vascular congestion with associated small bilateral pleural effusions and compressive atelectasis. Superimposed infection can not be ruled out. 3. Age-indeterminate wedge deformities of the T11 and T9 vertebral bodies. Correlate with point tenderness. 4. Additional findings as above. COMMENTS: Consistent with the [employer]'s Incidental Findings Committee white paper (J Am Nuria Radiol 2018): Any incidental renal lesion less than 1 cm or classified as too small to characterize, or any incidental cystic renal lesion characterized as simple-appearing, is likely benign. No follow-up imaging is recommended for these lesions per consensus recommendations based on imaging criteria.
[2024-02-19] MEDS: sodium chloride 0.9% 1,000 ML 250 ML IV (01:44)
[2024-02-19] MEDS: iohexol 350 mg/mL 500 mL Btl (per mL) IV (02:14)
[2024-02-19 02:36] LABS: Lactic Acid level (Lactate) 5.3 mmol/L (0.5-2.2)
--- NOTE | 2024-02-19 03:19 | PC.NURSE ---
This nurse rounded on patient. Patient was previously only responsive to painful stimuli. At this time, patient obeys commands to squeeze hands and open eyes. Patient A&O to name and . Dr Heart notified of current patient status.
[2024-02-19 04:32] LABS: Troponin 5 6HR 40.47 ng/L (0-10); Troponin 5 6HR Delta 6.47 ng/L (0-12)
--- NOTE | 2024-02-19 04:53 | CTR_ITS ---
PROCEDURE INFORMATION: Exam: CT Abdomen And Pelvis Without Contrast Exam date and time: 02/19/2024 5:10 AM Age: 88 years old Clinical indication: Other: Joao, UTI; Prior surgery; Surgery date: 6+ months; Surgery type: Gb, hyst, bladder; Additional info: R CVA tenderness, joao, UTI TECHNIQUE: Imaging protocol: Computed tomography of the abdomen and pelvis without contrast. Radiation optimization: All CT scans at this facility use at least one of these dose optimization techniques: automated exposure control; mA and/or kV adjustment per patient size (includes targeted exams where dose is matched to clinical indication); or iterative reconstruction. COMPARISON: CT abdomen pelvis w con* [id number] 07/12/2022 3:44 PM RADIATION DOSE METRICS: Total DLP (mGy-cm): 707.6 FINDINGS: Tubes, catheters and devices: Maldonado catheter is in place. Urinary bladder is decompressed. Lungs: Lung bases are clear as visualized. Heart: Base of heart is unremarkable as visualized. Liver: Undulating contour of the liver suggesting possible cirrhosis. Gallbladder and bile ducts: Patient is status post cholecystectomy. Pancreas: Normal. No ductal dilation. Spleen: Normal. No splenomegaly. Adrenal glands: Bilateral nodular hypertrophy of the adrenal glands. Kidneys and ureters: There is retained contrast within the left renal cortex. There is left rdor-bn-eispvteg hydronephrosis with contrast in the left renal collecting system. There is nodular soft tissue appearance of the proximal left ureter with mild dilation of the upper portions of the left ureter (series 3, image 93). Bilateral benign renal cysts are noted. Multiple additional bilateral renal hypodensities are too small to characterize by modality. Stomach and bowel: Mild scattered colonic wall thickening. Appendix: No evidence of appendicitis. Intraperitoneal space: Unremarkable. No free air. No significant fluid collection. Vasculature: Diffuse atherosclerotic disease of the visualized aorta and its major branches. Abdominal varices are noted. Lymph nodes: Unremarkable. No enlarged lymph nodes. Urinary bladder: See Tubes, catheters and devices finding. Reproductive: Complex left adnexal cyst is noted with thick enhancing septations at the inferior aspect (series 3, image 100 48), on today's examination the cyst demonstrates mild decreased from prior comparison in size, now measuring 4.8 x 2.0 x 3.3 cm. Additional right adnexal cysts are noted of similar caliber to prior comparisons. Bones/joints: Diffuse degenerative changes of the visualized osseous structures. Multiple wedging deformities of the thoracolumbar spine with interventions at T12 through L2. Wedge deformities of T9, T11, L3. Soft tissues: Although the study states that contrast was not administered, previous contrast from CT pulmonary angiogram performed on the same day, allows for characterization of the visualized viscera. Other findings: Please see concurrently performed CT pulmonary angiogram for intrathoracic findings and impression. CT/CT abdomen pelvis wo con [id number] IMPRESSION: 1. Retained contrast of the left renal cortex with associated avjb-tb-ywmltndk left hydronephrosis as well as prominence of the proximal left ureter. At the proximal left ureter there are ill-defined regions of nodular soft tissue density suggesting possible underlying obstructing mass/lesion. Three-phase CT can be obtained for better characterization. 2. Findings consistent with cirrhosis and portal hypertension. 3. Mild scattered colonic wall thickening which may be result from portal hypertension, mild colitis can present similarly. 4. Please see concurrently performed CT pulmonary angiogram for intrathoracic findings and impression. 5. Adnexal cysts as detailed above. COMMENTS: Consistent with the [employer]'s Incidental Findings Committee white paper (J Am Nuria Radiol 2018): Any incidental renal lesion less than 1 cm or classified as too small to characterize, or any incidental cystic renal lesion characterized as simple-appearing, is likely benign. No follow-up imaging is recommended for these lesions per consensus recommendations based on imaging criteria.
--- NOTE | 2024-02-19 05:01 | P.HP_ITS ---
Providers/Chief Complaint 2 Primary Care Provider: Ramila Jasso MD Chief Complaint: AMS History of Present Illness Georgia Cerna is a 88 year old female with a past medical history of atrial fibrillation not on anticoagulation?, GERD, hypothyroidism, dyslipidemia, who presents to [facility] due to altered mental status. Currently patient is alert to person, not to place, not to time she can follows basic commands, but has encephalopathy, when asked her why she is here in the hospital, she tells me that her back is hurting her, on examination she does have significant right CVA tenderness when asked her why her backside hurts her, she tells me that she was getting out of bed and she fell on her back, I asked her when, and she was not able to give me a clear answer, she denies any fevers, chills, no cough, no chest pain, in the emergency room her blood pressures are quite soft maps around 65, having low-grade fevers, intermittently tachycardic, 2 L, patient was have found to have sepsis secondary to UTI, with HARRISON, there is also concern for pneumonia. According to ER provider patient went to sleep around 1130, and does not bother her until 9 PM, when her daughter tried to wake her up, she was unable to wake up, was only responsive to painful stimuli, on arrival patient was only responsive to painful stimuli was given fluid bolus, Madhuri, Review of Systems 2 Const: Reports: chills; Denies: fever(s) Card: Denies: chest pain Resp: Denies: dyspnea GI: Denies: abdominal pain or nausea : Reports: flank pain Neuro: Denies: headache(s) Medications/Allergies Home Medications Medication Instructions Recorded Confirmed Last Taken Type teriparatide 20 mcg/dose (600 20 mcg SUBCUT DAILY 01/30/22 01/26/24 Unknown History mcg/2.4 mL) subcutaneous pen injector (Forteo) alcohol swabs 1 pad topical DAILY to use daily 08/10/22 01/26/24 Unknown Rx with forteo pen #100 ea pen needle, diabetic 31 gauge x #100 ea 08/10/22 01/26/24 Unknown Rx 1/4 (Comfort EZ Pen [place]) ketoconazole 2 % shampoo 1 applic topical DAILY PRN showers 08/27/22 01/26/24 Unknown Rx #120 mL cholecalciferol (vitamin D3) 1,250 1,250 mcg PO .WEEKLY 90 days #13 04/15/23 01/26/24 Unknown Rx mcg (50,000 unit) capsule caps ferrous sulfate 325 mg (65 mg 325 mg PO DAILY 90 days #90 tabs 04/15/23 01/26/24 Unknown Rx iron) tablet,delayed release cephalexin 500 mg capsule 500 mg PO BID #14 caps 10/14/23 01/26/24 Unknown Rx furosemide 20 mg tablet 20 mg PO DAILY 90 days #90 tabs 10/16/23 01/26/24 Unknown Rx gabapentin 400 mg capsule 400 mg PO DAILY 90 days #90 caps 10/16/23 01/26/24 Unknown Rx levothyroxine 100 mcg tablet 100 mcg PO DAILY 90 days #90 tabs 10/16/23 01/26/24 Unknown Rx lovastatin 20 mg tablet 20 mg PO DAILY #90 tabs 10/16/23 01/26/24 Unknown Rx pantoprazole 40 mg tablet,delayed 40 mg PO DAILY 90 days #90 tabs 10/16/23 01/26/24 Unknown Rx release Allergies Allergy/AdvReac Type Severity Reaction Status Date / Time amoxicillin Allergy Intermediate ALGY-Rash Verified 02/18/24 23:13 Penicillins Allergy Mild ALGY-Hives Verified 02/18/24 23:13 PFSH Acute 2 PFSH: Medical History Peripheral edema Chronic constipation PVD (peripheral vascular disease) Atrial fibrillation GERD (gastroesophageal reflux disease) Hypothyroid Chronic low back pain Dyslipidemia Surgical History H/O knee surgery H/O: hysterectomy History of cholecystectomy History of bladder surgery Family History Other CAD (coronary artery disease) Stroke Social History Smoking and tobacco/nicotine status: never used tobacco/nicotine Alcohol intake: never Substance/Drug Use: never Female Reproductive History: Spontaneous abortions: No Vitals/I&O/Wt Last Vital Signs Temp 99.9 F H 02/19/24 00:38 Pulse 73 02/19/24 04:32 Resp 19 H 02/19/24 04:32 BP 105/60 02/19/24 04:32 Pulse Ox 97 02/19/24 04:32 O2 Del Method Room Air 02/19/24 04:24 O2 Flow Rate 2 02/19/24 02:16 02/18/24 02/18/24 02/19/24 14:59 22:59 06:59 Intake Total 1150 / 1150 Balance 1150 / 1150 Weight last 48 hrs Weight 69.4 kg Physical Exam 2 Const: COMMON NORMALS: no acute distress EXAM LIMITATIONS: altered mental status ORIENTATION/CONSCIOUSNESS: Yes awake, Yes oriented to person and Yes confused; not oriented to place and not oriented to time Eye: COMMON NORMALS: Equal, round and reactive pupils present Neck/C-Spine: COMMON NORMALS: no JVD Lymph: LYMPHATIC: no lymphadenopathy noted Resp: COMMON NORMALS: normal respiratory effort, No retractions, No use of accessory muscles and clear to auscultation bilaterally AUSCULTATION: c rackles Cardio: COMMON NORMALS: regular rate, regular rhythm, S1 normal heart sound present and S2 normal heart sound present RATE: regular rate RHYTHM: r egular rhythm HEART SOUNDS: S1 normal heart sound present and S2 normal heart sound present GI: COMMON NORMALS: Normal to inspection, nondistended, normoactive bowel sounds present, Soft to palpation and non-tender : OTHER: Right CVA tenderness Neuro: OTHER: Does not follow neurologic testing, pupils equal round reactive to light, does move bilateral upper lower extremities Urinary Catheter Management: Maldonado: Cath Placed During This Visit: yes Urinary Catheter Date of Insertion: 02/18/24 Urinary Catheter Time of Insertion: 23:30 Sepsis: Is patient septic: Yes Focused sepsis exam performed: Yes F ocused sepsis exam: Greater than 2 seconds, no mottling, but pale bilateral extremities, cap refill greater than 2 seconds Date exam was performed: 02/19/24 Time exam was performed: 05:00 Data 02/18/24 23:34 02/18/24 23:34 Micro: Microbiology 02/19/24 01:04 Blood Culture - Preliminary Blood SPECIMEN COLLECTED 02/19/24 01:01 Blood Culture - Preliminary Blood SPECIMEN COLLECTED A&P Assessment and plan (1) Acute encephalopathy: (2) Sepsis: (3) NSTEMI (non-ST elevated myocardial infarction): (4) Urinary tract infection: Qualifiers: Hematuria presence: with hematuria Urinary tract infection type: acute cystitis Qualified Code(s): N30.01 - Acute cystitis with hematuria (5) Acute kidney injury: (6) Pyelonephritis of right kidney: (7) Pneumonia: (8) Acute hypoxic respiratory failure: (9) Elevated lactic acid level: (10) Transaminitis: Plan Sepsis -Sepsis features met, with low-grade fevers, intermittent tachycardia,'s maps around 65, lactic acid 5.3, HARRISON 1.6, elevated troponins, with source of infection UTI, right CVA tenderness pyelonephritis, hypoxia secondary to pneumonia Right pyelonephritis, with UTI -Ordered CT scan abdomen pelvis without contrast, to evaluate for nephrolithiasis, if within normal limits patient can be admitted to the ICU -Continue sepsis bolus -Maintain MAP around 65 -Has received Zosyn in the emergency room, will switch to meropenem -Follow urine cultures, follow blood cultures Acute hypoxic respiratory failure secondary to pneumonia -CT angiogram the chest 2. Diffuse pulmonary vascular congestion with associated small bilateral pleural effusions and compressive atelectasis. Superimposed infection can not be ruled out. -Elevated BNP, component could be related to fluid overload load, CHF, Plan -Follow sputum cultures, blood cultures ? Start vancomycin, meropenem ? Monitor respiratory status closely -Monitor for signs for fluid overload Elevated lactic acid, 5.3 ? Secondary to sepsis as above, monitor Acute kidney injury ? Likely secondary to UTI, pyelonephritis, IV fluids NSTEMI ? Likely type II ? Serial EKGs, troponins, telemetry monitoring Acute encephalopathy ? Secondary to sepsis, pyelonephritis UTI, pneumonia ? Neurochecks, NIH stroke scale, aspiration precautions, keep n.p.o. Full code ? Lovenox for DVT prophylaxis Attestations 2 Medical Necessity Statement*: Patient requires hospitalization, inpatient, greater than 2 midnights, for sepsis, secondary to UTI, pyelonephritis, hypoxia secondary to pneumonia, acute encephalopathy, HARRISON, NSTEMI Diagnoses Acute encephalopathy G93.40 Sepsis A41.9 NSTEMI (non-ST elevated myocardial infarction) I21.4 Urinary tract infection N30.01 Hematuria presence: with hematuria Urinary tract infection type: acute cystitis Acute kidney injury N17.9 Pyelonephritis of right kidney N12 Pneumonia J18.9 Acute hypoxic respiratory failure J96.01 Elevated lactic acid level R79.89 Transaminitis R74.01
[2024-02-19 06:08] LABS: Ammonia 53 umol/L (11-51)
[2024-02-19] MEDS: FUROsemide 10 mg/mL SDV 2mL 20 MG IVP (07:07)
--- NOTE | 2024-02-19 07:11 | PC.PHAR ---
pts daughter tito [phone] states she gives the pt her medications everyday-pts daughter verified medications-pts daughter states the pt still takes gabapentin states it was filled for one cap tid states was too much for the pt states the pt only takes one cap daily states the pt has a build up ext doesnt show when last filled-pts daughter states the pt takes a forteo injection daily states the pt has been on for almost 2 years states they are suppose to be switching o prolia-notes are made in the pharmacy comments
[2024-02-19] MEDS: vancomycin 1,000 MG in sodium chloride 0.9% 250 ML 250 MG IV (08:09)
[2024-02-19] MEDS: meropenem 500 MG in sodium chloride 0.9% (plus) 50 ML 100 MG IV ×2 (09:13→20:41)
--- NOTE | 2024-02-19 09:31 | PM.CCNAC ---
Critical Care Event Note The high probability of a clinically significant, sudden or life threatening deterioration of the patient's [] system(s) required my full and direct attention, intervention and personal management. The critical care time is as shown. This time is in addition to time spent performing any reported procedures but includes the following: [x] Data and vital sign review and interpretation [x] Patient assessment, examination and intervention [x] Documentation [x] Medication orders and management Called by the emergency department for possible admission of Georgia Cerna. She has sepsis. I did do a sepsis exam and I evaluated her at 07 30. She had received a fluid bolus. She has sepsis secondary to UTI focus, low platelets, increased LFTs, borderline hypotension, elevated lactic acid. She had sepsis on admission. I had an extensive discussion with her family regarding possible need for stenting. deferred decision-making to daughter, who was in communication with her sibling. Patient herself is currently not capable of making a decision/does not have decisional capacity secondary illness. They report that she does not want any surgery of any kind, and is made this clear to them on multiple occasions. She is okay with receiving some IV antibiotic. She has commented to them on multiple occasions that she is ready to go if it is her time. After this extensive discussion with the family we will transition her to ICU for IV antibiotics, close fluid and electrolyte management. There is consideration of pressors, but trying to avoid any kind of central line. Family reports they are coming in and will continue to try to help with decision-making in this patient with multiple medical problems, with acute kidney injury, acute liver injury, sepsis with complicated UTI with hydronephrosis. Approximately 47 minutes spent at bedside, as well as discussing with emergency department physician, family members, etc. Critical Care Time Code activated: No Critical Care Time (min): 47 Coding Level of Care Code Acute Code for Chg Fwd
[2024-02-19] MEDS: sodium chloride 0.9% 250 ML IV ×2 (11:12→13:48)
[2024-02-19] MEDS: pantoprazole 40 mg SDV IVP (11:12)
[2024-02-19 11:34] LABS: Hematocrit 39.4 % (36-47); Mean Corpuscular Volume 103.1 fl (85-98); Mean Platelet Volume 11.3 fL (7.4-10.4); Platelet Count 55 10^3/cmm (157-399); Red Blood Count 3.82 10^6/uL (3.85-5.65); Red Cell Distribution Width 16.4 % (12.1-15.1); White Blood Count 8.15 10^3/uL (3.29-11.43)
[2024-02-19 11:50] LABS: Alanine Aminotransferase 29 U/L (0-33); Albumin Level 3.1 g/dL (3.5-5.2); Alkaline Phosphatase 117 U/L (35-105); Anion Gap 18.9 (5-19); Aspartate Amino Transferase 55 U/L (0-32); Blood Urea Nitrogen 40 mg/dL (8-23); Calcium 8.9 mg/dL (8.5-10.5); Carbon Dioxide 22 mmol/L (22-29); Chloride 108 mmol/L (98-107); Globulin 2.7 g/dL (1.3-4.6); Glucose 83 mg/dL (65-115); Magnesium 1.6 mg/dL (1.7-2.3); Osmolality Calculated 309 mOsm/kg (285-295); Potassium 3.9 mmol/L (3.5-5.1); Sodium 145 mmol/L (136-145); Total Bilirubin 1.8 mg/dL (0.15-1.2); Total Protein 5.8 g/dL (6.6-8.7)
[2024-02-19 12:07] LABS: Slide Review Slide Review Perform
[2024-02-19 12:09] LABS: Absolute Eosinophils 0.1 10^3/cmm (0.0-0.7); Absolute Segmented Neutrophil 4.6 10/cmm (1.6-7.1); Band Neutrophils Absolute 1.2 10^3/cmm (0.0-1.2); Eosinophils 1 %; Lymphocytes 6 %; Lymphocytes Absolute 0.5 10^3/cmm (1.2-3.4); Monocytes Absolute 0.4 10^3/cmm (0.1-0.6); Segmented Neutrophils 57 %; Total Cells Counted 100 (0-100)
[2024-02-19 12:10] LABS: Absolute Neutrophil 5.9 10^3/cmm (1.4-6.5); Anisocytosis 1+; Macrocytosis 2+; Ovalocytes 1+; Platelet Estimate Decreased (Normal); Smudge Cells 1+
[2024-02-19] MEDS: norepinephrine 4 MG/250 ML BAG 15 MG IV (12:14)
[2024-02-19] MEDS: magnesium sulfate premix 2 GM/50 ML PIGGYBACK IV (12:16)
--- NOTE | 2024-02-19 14:45 | PC.NURSE ---
resting at this time more responsive taking and taking sips of water ,levophed started prior for hypotension .. family in for visit
[2024-02-19] MEDS: sodium chloride 0.9% 1,000 ML 50 ML IV (16:16)
--- NOTE | 2024-02-19 20:49 | PC.NURSE ---
Patient is restless. pulling off gown and sheet. Pulling on bishop catheter. Patient says no to questions of pain, chill, or offer of water. Reminded patient she is at hospital, for treatment of infection and time of night.
[2024-02-20] VITALS (86 sets, daily range): BP systolic 76–150; BP diastolic 38–98; PULSE 98–141; RESP 12–30; TEMP 36.1–37.6; O2SAT 76–100
[2024-02-20] MEDS: norepinephrine 4 MG/250 ML BAG 30 MG IV ×2 (00:54→09:14)
[2024-02-20 04:06] LABS: Basophils % 0.1 %; Eosinophils % 0.1 %; Hematocrit 41.4 % (36-47); Lymphocytes # 0.4 10^3/uL (0.8-4.8); Lymphocytes % 2.8 %; Mean Corpuscular HGB Conc 31.6 g/dL (30-55); Mean Corpuscular Hemoglobin 33.2 pg (27-33); Mean Corpuscular Volume 105.1 fl (85-98); Mean Platelet Volume 12.4 fL (7.4-10.4); Monocytes # 0.7 10^3/uL (0.2-0.9); Monocytes % 4.6 %; Neutrophils # 11.96 10^3/uL (1.8-7.7); Neutrophils % 82.8 %; Nucleated Red Blood Cells % 0 %; Platelet Count 44 10^3/cmm (157-399); Red Blood Count 3.94 10^6/uL (3.85-5.65); Red Cell Distribution Width 16.8 % (12.1-15.1); White Blood Count 14.43 10^3/uL (3.29-11.43)
[2024-02-20 04:23] LABS: Alanine Aminotransferase 29 U/L (0-33); Albumin Level 2.7 g/dL (3.5-5.2); Alkaline Phosphatase 117 U/L (35-105); Blood Urea Nitrogen 51 mg/dL (8-23); Carbon Dioxide 17 mmol/L (22-29); Chloride 109 mmol/L (98-107); Creatinine Clr Calc Pharmacy 16.9908; Globulin 3.2 g/dL (1.3-4.6); Glucose 71 mg/dL (65-115); Magnesium 2.1 mg/dL (1.7-2.3); Osmolality Calculated 306 mOsm/kg (285-295); Sodium 142 mmol/L (136-145); Total Bilirubin 1.8 mg/dL (0.15-1.2); Total Protein 5.9 g/dL (6.6-8.7)
[2024-02-20 04:28] LABS: Anion Gap 20.7 (5-19); Aspartate Amino Transferase 55 U/L (0-32); Potassium 4.7 mmol/L (3.5-5.1)
[2024-02-20 04:38] LABS: Slide Review Slide Review Perform
--- NOTE | 2024-02-20 08:01 | P.PN_ITS ---
Documented by User: TYREL Srivastava STDDAREN 02/20/24 10:39 Subjective 2 Subjective: Patient resting in bed on room air. Mrs. Cerna was able to say hello when asked, otherwise nonverbal. She requiring 8mcg/min of Levophed this morning. Medications: Reviewed: Yes Vitals/I&O/Wt Last Vital Signs Temp 97.0 F L 02/20/24 01:45 Pulse 116 H 02/20/24 07:46 Resp 18 02/20/24 06:15 BP 118/63 02/20/24 06:15 Pulse Ox 95 02/20/24 07:46 O2 Del Method Nasal Cannula 02/20/24 07:46 O2 Flow Rate 2 02/20/24 07:46 02/19/24 02/20/24 02/20/24 22:59 06:59 14:59 Intake Total 450 / 1150 216.625 / 1366.625 Output Total 380 / 380 Balance 450 / 1150 -163.375 / 986.625 Weight last 48 hrs Weight 153 lb 12.8 oz Weight 153 lb 12.8 oz Weight 153 lb Weight 153 lb Physical Exam 2 Narrative: General exam is a nonverbal female, in no apparent distress. Confused. Neck is supple. No lymphadenopathy, thyromegaly. Cardiovascular, no murmur, irregular rhythm of afib, rate 115-120. Lungs are clear, no wheezing or crackles, on room air. Abdomen is soft with positive bowel sounds. No obvious organomegaly exams deferred Extremities no cyanosis, or edema, cap refill brisk Neuro no focal deficits, full ROM. Urinary Catheter Management: Maldonado: Cath Placed During This Visit: yes Reason for Continuing Indwelling Catheter: Accurate Measurement of Urinary Output in Critically Ill Patients Urinary Catheter Date of Insertion: 02/18/24 Urinary Catheter Time of Insertion: 23:30 Data 02/20/24 03:42 02/20/24 03:42 Micro: Microbiology 02/19/24 01:04 Blood Culture - Preliminary Blood NEGATIVE TO DATE 02/19/24 01:01 Blood Culture - Preliminary Blood Proteus mirabilis A&P Assessment and plan (1) Acute encephalopathy: Secondary to sepsis, pyelonephritis UTI, pneumonia aspiration precautions keep n.p.o. (2) Sepsis: Sepsis features met, with low-grade fevers, intermittent tachycardia,'s maps around 65, lactic acid 5.3, HARRISON 1.6, elevated troponins, with source of infection UTI, right CVA tenderness pyelonephritis, hypoxia secondary to pneumonia. Blood culture pending Urine culture pending Sputum culture pending (3) NSTEMI (non-ST elevated myocardial infarction): Likely type II 02/18/24 Baseline Troponin 34 Telemetry monitoring (4) Urinary tract infection: Ordered CT scan abdomen pelvis without contrast, to evaluate for nephrolithiasis, if within normal limits patient can be admitted to the ICU Continue sepsis bolus. Maintain MAP around 65, Levophed ordered. Continue meropenem and vancomycin. Follow urine cultures, follow blood cultures Qualifiers: Hematuria presence: with hematuria Urinary tract infection type: acute cystitis Qualified Code(s): N30.01 - Acute cystitis with hematuria (5) Acute kidney injury: Likely secondary to UTI, pyelonephritis, IV fluids (6) Pyelonephritis of right kidney: Continue IV vancomycin, meropenem Monitor I&O Spoke with family regarding transfer to different facility for possible stent placement, family does not want surgical intervention currently and understands the risks of this options. (7) Pneumonia: Follow sputum cultures, blood cultures Continue vancomycin, meropenem Monitor respiratory status closely Monitor for signs for fluid overload (8) Acute hypoxic respiratory failure: CT angiogram the chest IMPRESSION: 2. Diffuse pulmonary vascular congestion with associated small bilateral pleural effusions and compressive atelectasis. Superimposed infection can not be ruled out. -Elevated BNP, component could be related to fluid overload load, CHF (9) Elevated lactic acid level: Secondary to sepsis as above, monitor Plan Full code Lovenox for DVT prophylaxis Coding Level of Care Code Critical Care >/= 30 minutes Diagnoses Acute encephalopathy G93.40 Sepsis A41.9 NSTEMI (non-ST elevated myocardial infarction) I21.4 Urinary tract infection N30.01 Hematuria presence: with hematuria Urinary tract infection type: acute cystitis Acute kidney injury N17.9 Pyelonephritis of right kidney N12 Pneumonia J18.9 Acute hypoxic respiratory failure J96.01 Elevated lactic acid level R79.89 Documented by User: Ricardo Schafer MD 02/20/24 11:40 Physical Exam 2 Narrative: General exam is a nonverbal female, in no apparent distress. Confused. Responses slow Neck is supple. No lymphadenopathy, thyromegaly. Cardiovascular, no murmur, irregular rhythm of afib, rate 115-120. Lungs are clear, no wheezing or crackles, on room air. Abdomen is soft with positive bowel sounds. No obvious organomegaly exams Maldonado Extremities no cyanosis, or edema, cap refill brisk Neuro no focal deficits, full ROM. Urinary Catheter Management: Maldonado: Cath Placed During This Visit: yes Data 02/20/24 03:42 02/20/24 03:42 A&P Assessment and plan (1) Acute encephalopathy: Secondary to sepsis, pyelonephritis UTI, pneumonia aspiration precautions keep n.p.o. Monitor for improvement. No improvement from yesterday as noted. Perhaps slightly worse. (2) Sepsis: Sepsis features met, with low-grade fevers, intermittent tachycardia,'s maps around 65, lactic acid 5.3, HARRISON 1.6, elevated troponins, with source of infection UTI, right CVA tenderness pyelonephritis, hypoxia secondary to pneumonia. Blood culture pending Urine culture pending Sputum culture pending Currently on broad-spectrum antibiotics consisting of vancomycin and meropenem Proteus mirabilis growing out of blood. Significant hypotension. Currently on norepinephrine 6 mcg. (3) NSTEMI (non-ST elevated myocardial infarction): Likely type II 02/18/24 Baseline Troponin 34 Telemetry monitoring Unable to take p.o. medications currently. (4) Urinary tract infection: Ordered CT scan abdomen pelvis without contrast, to evaluate for nephrolithiasis, if within normal limits patient can be admitted to the ICU Continue sepsis bolus. Maintain MAP around 65, Levophed ordered. Continue meropenem and vancomycin. Follow urine cultures, follow blood cultures Gram-negative rods growing out in urine. Proteus growing out of blood. Qualifiers: Hematuria presence: with hematuria Urinary tract infection type: acute cystitis Qualified Code(s): N30.01 - Acute cystitis with hematuria (5) Acute kidney injury: Likely secondary to UTI, pyelonephritis, IV fluids Avoid renal toxic medications Creatinine slightly worse at 2.0 (6) Pyelonephritis of right kidney: Continue IV vancomycin, meropenem Monitor I&O Spoke with family regarding transfer to different facility for possible stent placement, family does not want surgical intervention currently and understands the risks of this options. CT scan demonstrates at least moderate hydronephrosis, with possible obstructing mass lesion. Family does not want urology referral, transfer, any surgeries whatsoever. I have discussed with them in detail that she may ultimately from sepsis, with inability to achieve source control. They report if she worsens significantly we will consider moving to comfort measures only. (7) Pneumonia: (8) Acute hypoxic respiratory failure: CT angiogram the chest IMPRESSION: 2. Diffuse pulmonary vascular congestion with associated small bilateral pleural effusions and compressive atelectasis. Superimposed infection can not be ruled out. -Elevated BNP, component could be related to fluid overload load, CHF Continue oxygen and fluids as needed. Had significant valvular heart disease with pulmonary hypertension, moderate to severe tricuspid regurgitation, mild aortic stenosis, moderate mitral regurg on an echo in 2021. No reason to repeat echo currently. (9) Elevated lactic acid level: Plan Thrombocytopenia. Presumably secondary to sepsis. Holding any antiplatelet and anticoagulation currently. Also concern for some element of cirrhosis on CT. Will perform an ammonia level tomorrow. Elevated LFTs. Likely secondary to sepsis. Not yet improved. Full code SCDs for DVT prophylaxis. No anticoagulation secondary to markedly low platelets at less than 50,000. Attestations 2 Medical Necessity Statement*: Needs continued hospitalization secondary to complicated UTI, with sepsis requiring norepinephrine Critical Care Time: The high probability of a clinically significant, sudden or life threatening deterioration of the patient's [pulmonary, cardiac, infectious, renal, neurologic] system(s) required my full and direct attention, intervention and personal management. The critical care time is as shown. This time is in addition to time spent performing any reported procedures but includes the following: [x] Data and vital sign review and interpretation [x] Patient assessment, examination and intervention [x] Documentation [x] Medication orders and management Critical Care Time (min): 35 Coding Level of Care Code Critical Care >/= 30 minutes Critical care time (in minutes): 35 The high probability of a clinically significant, sudden or life threatening deterioration, as referenced in this documentation, required my full and direct attention, intervention and personal management. The critical care time shown is in addition to time spent performing any reported separately billable procedures and includes the following: [x] Data and vital sign review and interpretation [x ] Patient assessment, examination and intervention [x] Medication orders and management [x] Patient/Family updates as able [x] Care Coordination and Documentation. Diagnoses Acute encephalopathy G93.40 Sepsis A41.9 NSTEMI (non-ST elevated myocardial infarction) I21.4 Urinary tract infection N30.01 Hematuria presence: with hematuria Urinary tract infection type: acute cystitis Acute kidney injury N17.9 Pyelonephritis of right kidney N12 Pneumonia J18.9 Acute hypoxic respiratory failure J96.01 Elevated lactic acid level R79.89
[2024-02-20] MEDS: meropenem 500 MG in sodium chloride 0.9% (plus) 50 ML 100 MG IV ×2 (10:02→20:52)
[2024-02-20] MEDS: pantoprazole 40 mg SDV IVP (10:02)
[2024-02-20] MEDS: sodium chloride 0.9% 1,000 ML 50 ML IV (11:05)
--- NOTE | 2024-02-20 12:39 | PC.SOCIAL ---
IM Update pg 2 of IMM updated. Copy provided and copy dated, initialed and placed in chart.
[2024-02-20] MEDS: vancomycin 1,000 MG in sodium chloride 0.9% 250 ML 250 MG IV (19:22)
[2024-02-20] MEDS: norepinephrine 4 MG/250 ML BAG 15 MG IV (21:03)
[2024-02-21] VITALS (54 sets, daily range): BP systolic 85–122; BP diastolic 41–80; PULSE 75–131; RESP 9–29; TEMP 36.3–36.7; O2SAT 83–99
--- NOTE | 2024-02-21 04:25 | PC.NURSE ---
This RN agrees with all documentations and administration of care performed by SN Stacy
[2024-02-21 05:35] LABS: Eosinophils % 0.1 %; Hematocrit 39.9 % (36-47); Lymphocytes # 0.3 10^3/uL (0.8-4.8); Lymphocytes % 2.4 %; Mean Corpuscular HGB Conc 33.8 g/dL (30-55); Mean Corpuscular Hemoglobin 33.3 pg (27-33); Mean Corpuscular Volume 98.3 fl (85-98); Mean Platelet Volume 13.5 fL (7.4-10.4); Monocytes # 0.6 10^3/uL (0.2-0.9); Monocytes % 4.2 %; Neutrophils # 12.43 10^3/uL (1.8-7.7); Neutrophils % 92.2 %; Nucleated Red Blood Cells % 0 %; Red Blood Count 4.06 10^6/uL (3.85-5.65); Red Cell Distribution Width 16.8 % (12.1-15.1); White Blood Count 13.48 10^3/uL (3.29-11.43)
[2024-02-21 05:54] LABS: Alanine Aminotransferase 25 U/L (0-33); Albumin Level 2.7 g/dL (3.5-5.2); Alkaline Phosphatase 196 U/L (35-105); Aspartate Amino Transferase 33 U/L (0-32); Chloride 109 mmol/L (98-107); Globulin 2.7 g/dL (1.3-4.6); Glucose 92 mg/dL (65-115); Potassium 4.9 mmol/L (3.5-5.1); Sodium 142 mmol/L (136-145); Total Protein 5.4 g/dL (6.6-8.7)
[2024-02-21 05:56] LABS: Ammonia 32 umol/L (11-51)
[2024-02-21 06:06] LABS: Platelet Count 21 10^3/cmm (157-399)
[2024-02-21 06:21] LABS: Anion Gap 16.9 (5-19); Blood Urea Nitrogen 64 mg/dL (8-23); Calcium 8.9 mg/dL (8.5-10.5); Carbon Dioxide 21 mmol/L (22-29); Creatinine Clr Calc Pharmacy 16.2987; Magnesium 2.1 mg/dL (1.7-2.3); Osmolality Calculated 312 mOsm/kg (285-295); Total Bilirubin 1.9 mg/dL (0.15-1.2)
[2024-02-21] MEDS: sodium chloride 0.9% 1,000 ML 50 ML IV (06:38)
[2024-02-21] MEDS: meropenem 500 MG in sodium chloride 0.9% (plus) 50 ML 100 MG IV (09:51)
[2024-02-21] MEDS: pantoprazole 40 mg SDV IVP (09:52)
[2024-02-21] MEDS: morphine 4 mg/mL SDV 1 mL IVP ×2 (14:53→20:00)
--- NOTE | 2024-02-21 15:46 | P.PN_ITS ---
Subjective 2 Subjective: Hospital course, labs appreciated. Seen with family numbers at bedside in ICU. Levophed stopped earlier today morning. Patient remains at her baseline mentation secondary to dementia. Urine output 400 cc in last 24 hours. Afebrile last 24 hours. On examination mean of more than 65 mmHg with systolic of high 90s. Medications: Reviewed: Yes Vitals/I&O/Wt Last Vital Signs Temp 97.5 F L 02/21/24 15:20 Pulse 95 02/21/24 15:20 Resp 18 02/21/24 15:20 BP 93/62 02/21/24 15:20 Pulse Ox 99 02/21/24 15:20 O2 Del Method Nasal Cannula 02/21/24 15:20 O2 Flow Rate 2 02/21/24 10:26 02/21/24 02/21/24 02/21/24 06:59 14:59 22:59 Intake Total 1040.375 / 2866.250 92.875 / 92.875 25.75 / 118.625 Output Total 150 / 400 Balance 890.375 / 2466.250 92.875 / 92.875 25.75 / 118.625 Weight last 48 hrs Weight 70.364 kg Weight 70.42 kg Weight 69.763 kg Weight 69.763 kg Physical Exam 2 Narrative: No acute distress, confused. Responses slow Neck is supple. No lymphadenopathy, thyromegaly. Cardiovascular, no murmur, irregular rhythm of afib, rate 115-120. Lungs are clear, no wheezing or crackles, on room air. Abdomen is soft with positive bowel sounds. No obvious organomegaly exams Maldonado Extremities no cyanosis, or edema, cap refill brisk Neuro no focal deficits, full ROM. Urinary Catheter Management: Maldonado: Cath Placed During This Visit: yes Reason for Continuing Indwelling Catheter: Acute Urinary Retention or Obstruction Urinary Catheter Date of Insertion: 02/18/24 Urinary Catheter Time of Insertion: 23:30 Data 02/21/24 05:20 02/21/24 05:20 Micro: Microbiology 02/19/24 01:01 Blood Culture - Final Blood Proteus mirabilis 02/18/24 23:30 Urine Culture - Final Urine,Clean Catch Proteus mirabilis A&P Assessment and plan (1) Acute encephalopathy: Secondary to sepsis, pyelonephritis UTI, pneumonia aspiration precautions keep n.p.o. Monitor for improvement. No improvement from yesterday as noted. Perhaps slightly worse. (2) Sepsis: Sepsis features met, with low-grade fevers, intermittent tachycardia,'s maps around 65, lactic acid 5.3, HARRISON 1.6, elevated troponins, with source of infection UTI, right CVA tenderness pyelonephritis, hypoxia secondary to pneumonia. Blood culture pending Urine culture pending Sputum culture pending Currently on broad-spectrum antibiotics consisting of vancomycin and meropenem Proteus mirabilis growing out of blood. Significant hypotension. Currently on norepinephrine 6 mcg. (3) Pyelonephritis of right kidney: Continue IV vancomycin, meropenem Monitor I&O Spoke with family regarding transfer to different facility for possible stent placement, family does not want surgical intervention currently and understands the risks of this options. CT scan demonstrates at least moderate hydronephrosis, with possible obstructing mass lesion. Family does not want urology referral, transfer, any surgeries whatsoever. I have discussed with them in detail that she may ultimately from sepsis, with inability to achieve source control. They report if she worsens significantly we will consider moving to comfort measures only. (4) Urinary tract infection: Ordered CT scan abdomen pelvis without contrast, to evaluate for nephrolithiasis, if within normal limits patient can be admitted to the ICU Continue sepsis bolus. Maintain MAP around 65, Levophed ordered. Continue meropenem and vancomycin. Follow urine cultures, follow blood cultures Gram-negative rods growing out in urine. Proteus growing out of blood. Qualifiers: Hematuria presence: with hematuria Urinary tract infection type: acute cystitis Qualified Code(s): N30.01 - Acute cystitis with hematuria (5) Acute kidney injury: Likely secondary to UTI, pyelonephritis, IV fluids Avoid renal toxic medications Creatinine slightly worse at 2.0 (6) Pneumonia: Follow sputum cultures, blood cultures Continue vancomycin, meropenem Monitor respiratory status closely Monitor for signs for fluid overload (7) NSTEMI (non-ST elevated myocardial infarction): Likely type II 02/18/24 Baseline Troponin 34 Telemetry monitoring Unable to take p.o. medications currently. (8) Acute hypoxic respiratory failure: CT angiogram the chest IMPRESSION: 2. Diffuse pulmonary vascular congestion with associated small bilateral pleural effusions and compressive atelectasis. Superimposed infection can not be ruled out. -Elevated BNP, component could be related to fluid overload load, CHF Continue oxygen and fluids as needed. Had significant valvular heart disease with pulmonary hypertension, moderate to severe tricuspid regurgitation, mild aortic stenosis, moderate mitral regurg on an echo in 2021. No reason to repeat echo currently. (9) Goals of care, counseling/discussion: (10) Hypertension: Qualifiers: Hypertension type: essential hypertension Qualified Code(s): I10 - Essential (primary) hypertension (11) Valvular heart disease: (12) Atrial fibrillation: Qualifiers: Atrial fibrillation type: paroxysmal Qualified Code(s): I48.0 - Paroxysmal atrial fibrillation (13) PVD (peripheral vascular disease): (14) Thrombocytopenia: (15) Old age, dementia: (16) Hypoalbuminemia due to protein-calorie malnutrition: Plan Thrombocytopenia. Presumably secondary to sepsis. Holding any antiplatelet and anticoagulation currently. Also concern for some element of cirrhosis on CT. Will perform an ammonia level tomorrow. Elevated LFTs. Likely secondary to sepsis. Not yet improved. Goals of care discussion: Goals of care discussed with patient's daughter, son, granddaughter at bedside. We discussed that patient has pyelonephritis with left-sided hydronephrosis in the setting of possible mass causing ureteral obstruction with concerns for pyelonephritis/cystitis from Proteus mirabilis and blood cultures being positive for Proteus mirabilis as well. Discussed treatment contains of 2 parts 1 would be antibiotic which is to control the infection of the wrist surgical management to relieve obstruction at left hydronephrosis for source control. Chances of patient's recovery without surgical intervention is on the lower side with high risk of recurrence or continuation of septic shock. Discussed surgical procedure for now would mean cystoscopy and possible stent placement but she might need further procedures depending on clinical improvement after the stent placement. Discussed about quality of life versus quantity of life. Unfortunately with treatment patient's life can be prolonged but quality of life would not improve with just poor in setting of advanced dementia, valvular disorder, cardiomyopathy, macular degeneration and atrial fibrillation. Family verbalized understanding and had few questions which were answered. After discussing amongst himself later family decided that patient is DNR/DNI and would not have wanted any kind of surgical procedures and want to go ahead with setting of hospice/comfort care. They would most likely want to have hospice at SNF. Plan: Hospice care orders placed. Hold off any further IV antibiotics, Levophed, blood work. Vitals as per protocol. Regular diet if and when possible. Continued Maldonado catheterization. Morphine and Ativan as needed. Transfer to [facility] floor. Case management consultation for SNF placement with hospice. Full code SCDs for DVT prophylaxis. No anticoagulation secondary to markedly low platelets at less than 50,000. Attestations 2 Medical Necessity Statement*: Require further hospitalization while hospice is set up and up elderly female with advanced dementia, valvular disorder, cardiomyopathy and A-fib who was admitted for Proteus mirabilis bacteremia, septic shock in setting of left obstructive hydronephrosis and pyelonephritis Diagnoses Acute encephalopathy G93.40 Sepsis A41.9 Pyelonephritis of right kidney N12 Urinary tract infection N30.01 Hematuria presence: with hematuria Urinary tract infection type: acute cystitis Acute kidney injury N17.9 Pneumonia J18.9 NSTEMI (non-ST elevated myocardial infarction) I21.4 Acute hypoxic respiratory failure J96.01 Goals of care, counseling/discussion Z71.89 Essential hypertension I10 Hypertension type: essential hypertension Valvular heart disease I38 Paroxysmal atrial fibrillation I48.0 Atrial fibrillation type: paroxysmal PVD (peripheral vascular disease) I73.9 Thrombocytopenia D69.6 Old age, dementia F03.90 Hypoalbuminemia due to protein-calorie malnutrition E88.09; E46
[2024-02-22] VITALS (8 sets, daily range): BP systolic 98–114; BP diastolic 57–67; PULSE 75–101; RESP 11–16; TEMP 36.3–36.7; O2SAT 77–93; BMI 29.0
[2024-02-22] MEDS: blistex lip oint 7 gm Tube 1 APPLIC TOPICAL (06:05)
[2024-02-22] MEDS: morphine 10 mg/0.5 mL oral liq UD SUBLINGUAL ×3 (06:41→20:16)
--- NOTE | 2024-02-22 12:22 | P.PN_ITS ---
Subjective 2 Subjective: Today morning and seen patient resting comfortably in bed. As per the nursing staff patient has been comfortable overnight. Medications: Reviewed: Yes Vitals/I&O/Wt Last Vital Signs Temp 97.4 F L 02/22/24 12:16 Pulse 101 H 02/22/24 12:16 Resp 11 L 02/22/24 12:16 BP 108/62 02/22/24 12:16 Pulse Ox 77 L 02/22/24 12:16 O2 Del Method Nasal Cannula 02/22/24 12:16 O2 Flow Rate 2 02/22/24 08:45 02/21/24 02/22/24 02/22/24 22:59 06:59 14:59 Intake Total 25.75 / 268.793 8547 / 1118.625 Output Total 250 / 250 Balance 25.75 / 118.625 750 / 868.625 Weight last 48 hrs Weight 69.853 kg Weight 69.853 kg Weight 70.364 kg Weight 70.42 kg Physical Exam 2 Narrative: Examination deferred given comfort care status only. Urinary Catheter Management: Maldonado: Cath Placed During This Visit: yes Reason for Continuing Indwelling Catheter: Other Urinary Catheter Date of Insertion: 02/18/24 Urinary Catheter Time of Insertion: 23:30 Data 02/21/24 05:20 02/21/24 05:20 Micro: Microbiology 02/19/24 01:04 Blood Culture - Final Blood Proteus mirabilis 02/19/24 01:01 Blood Culture - Final Blood Proteus mirabilis 02/18/24 23:30 Urine Culture - Final Urine,Clean Catch Proteus mirabilis A&P Assessment and plan (1) Acute encephalopathy: Secondary to sepsis, pyelonephritis UTI, pneumonia aspiration precautions keep n.p.o. Monitor for improvement. No improvement from yesterday as noted. Perhaps slightly worse. (2) Sepsis: Sepsis features met, with low-grade fevers, intermittent tachycardia,'s maps around 65, lactic acid 5.3, HARRISON 1.6, elevated troponins, with source of infection UTI, right CVA tenderness pyelonephritis, hypoxia secondary to pneumonia. Blood culture pending Urine culture pending Sputum culture pending Currently on broad-spectrum antibiotics consisting of vancomycin and meropenem Proteus mirabilis growing out of blood. Significant hypotension. Currently on norepinephrine 6 mcg. (3) Pyelonephritis of right kidney: Continue IV vancomycin, meropenem Monitor I&O Spoke with family regarding transfer to different facility for possible stent placement, family does not want surgical intervention currently and understands the risks of this options. CT scan demonstrates at least moderate hydronephrosis, with possible obstructing mass lesion. Family does not want urology referral, transfer, any surgeries whatsoever. I have discussed with them in detail that she may ultimately from sepsis, with inability to achieve source control. They report if she worsens significantly we will consider moving to comfort measures only. (4) Urinary tract infection: Ordered CT scan abdomen pelvis without contrast, to evaluate for nephrolithiasis, if within normal limits patient can be admitted to the ICU Continue sepsis bolus. Maintain MAP around 65, Levophed ordered. Continue meropenem and vancomycin. Follow urine cultures, follow blood cultures Gram-negative rods growing out in urine. Proteus growing out of blood. Qualifiers: Hematuria presence: with hematuria Urinary tract infection type: acute cystitis Qualified Code(s): N30.01 - Acute cystitis with hematuria (5) Acute kidney injury: Likely secondary to UTI, pyelonephritis, IV fluids Avoid renal toxic medications Creatinine slightly worse at 2.0 (6) Pneumonia: Follow sputum cultures, blood cultures Continue vancomycin, meropenem Monitor respiratory status closely Monitor for signs for fluid overload (7) NSTEMI (non-ST elevated myocardial infarction): Likely type II 02/18/24 Baseline Troponin 34 Telemetry monitoring Unable to take p.o. medications currently. (8) Acute hypoxic respiratory failure: CT angiogram the chest IMPRESSION: 2. Diffuse pulmonary vascular congestion with associated small bilateral pleural effusions and compressive atelectasis. Superimposed infection can not be ruled out. -Elevated BNP, component could be related to fluid overload load, CHF Continue oxygen and fluids as needed. Had significant valvular heart disease with pulmonary hypertension, moderate to severe tricuspid regurgitation, mild aortic stenosis, moderate mitral regurg on an echo in 2021. No reason to repeat echo currently. (9) Goals of care, counseling/discussion: (10) Hypertension: Qualifiers: Hypertension type: essential hypertension Qualified Code(s): I10 - Essential (primary) hypertension (11) Valvular heart disease: (12) Atrial fibrillation: Qualifiers: Atrial fibrillation type: paroxysmal Qualified Code(s): I48.0 - Paroxysmal atrial fibrillation (13) PVD (peripheral vascular disease): (14) Thrombocytopenia: (15) Old age, dementia: (16) Hypoalbuminemia due to protein-calorie malnutrition: Plan Thrombocytopenia. Presumably secondary to sepsis. Holding any antiplatelet and anticoagulation currently. Also concern for some element of cirrhosis on CT. Will perform an ammonia level tomorrow. Elevated LFTs. Likely secondary to sepsis. Not yet improved. Goals of care discussion: Goals of care discussed with patient's daughter, son, granddaughter at bedside. We discussed that patient has pyelonephritis with left-sided hydronephrosis in the setting of possible mass causing ureteral obstruction with concerns for pyelonephritis/cystitis from Proteus mirabilis and blood cultures being positive for Proteus mirabilis as well. Discussed treatment contains of 2 parts 1 would be antibiotic which is to control the infection of the wrist surgical management to relieve obstruction at left hydronephrosis for source control. Chances of patient's recovery without surgical intervention is on the lower side with high risk of recurrence or continuation of septic shock. Discussed surgical procedure for now would mean cystoscopy and possible stent placement but she might need further procedures depending on clinical improvement after the stent placement. Discussed about quality of life versus quantity of life. Unfortunately with treatment patient's life can be prolonged but quality of life would not improve with just poor in setting of advanced dementia, valvular disorder, cardiomyopathy, macular degeneration and atrial fibrillation. Family verbalized understanding and had few questions which were answered. After discussing amongst himself later family decided that patient is DNR/DNI and would not have wanted any kind of surgical procedures and want to go ahead with setting of hospice/comfort care. They would most likely want to have hospice at SNF. Plan for the day: Continue care as per comfort care/hospice measure status. Vitals as per protocol. Case management consulted for possible transfer to SNF with hospice. Full code SCDs for DVT prophylaxis. No anticoagulation secondary to markedly low platelets at less than 50,000. Attestations 2 Medical Necessity Statement*: Requires further hospitalization for comfort care status only while outpatient hospice is set up. Diagnoses Acute encephalopathy G93.40 Sepsis A41.9 Pyelonephritis of right kidney N12 Urinary tract infection N30.01 Hematuria presence: with hematuria Urinary tract infection type: acute cystitis Acute kidney injury N17.9 Pneumonia J18.9 NSTEMI (non-ST elevated myocardial infarction) I21.4 Acute hypoxic respiratory failure J96.01 Goals of care, counseling/discussion Z71.89 Essential hypertension I10 Hypertension type: essential hypertension Valvular heart disease I38 Paroxysmal atrial fibrillation I48.0 Atrial fibrillation type: paroxysmal PVD (peripheral vascular disease) I73.9 Thrombocytopenia D69.6 Old age, dementia F03.90 Hypoalbuminemia due to protein-calorie malnutrition E88.09; E46
[2024-02-22] MEDS: morphine 4 mg/mL SDV 1 mL IVP (12:49)
[2024-02-23] VITALS (7 sets, daily range): BP systolic 115–119; BP diastolic 56–78; PULSE 71–87; RESP 14–19; TEMP 36.3–36.4; O2SAT 95–97
[2024-02-23] MEDS: morphine 10 mg/0.5 mL oral liq UD SUBLINGUAL ×5 (06:13→17:47)
[2024-02-23] MEDS: pantoprazole 40 mg SDV IVP (09:00)
--- NOTE | 2024-02-23 10:11 | PC.SOCIAL ---
IMM Update pg 2 of IMM updated and reviewed w/ patients son. Copy provided and copy dated, initialed and placed in chart.
--- NOTE | 2024-02-23 14:40 | P.PN_ITS ---
Subjective 2 Subjective: Unable to assess secondary to patient's altered mental status. No acute overnight events noted. Family at bedside. Spoke to them about the current status and hospice care. She is n.p.o. not on any medications or IV fluids, Medications: Reviewed: Yes Vitals/I&O/Wt Last Vital Signs Temp 97.4 F L 02/23/24 08:00 Pulse 71 02/23/24 09:08 Resp 18 02/23/24 09:08 BP 115/78 02/23/24 08:00 Pulse Ox 96 02/23/24 09:08 O2 Del Method Room Air 02/23/24 12:00 O2 Flow Rate 2 02/23/24 09:08 02/22/24 02/23/24 02/23/24 22:59 06:59 14:59 Intake Total 0 / 0 Output Total 175 / 175 200 / 375 Balance -175 / -175 -200 / -375 Weight last 48 hrs Weight 69.4 kg Weight 69.4 kg Weight 69.853 kg Weight 69.853 kg Physical Exam 2 Narrative: She is drowsy but opens eyes to verbal stimuli, none comprehensive Chest clear to auscultation bilaterally Cardiovascular normal heart sounds Abdomen soft and nontender nondistended normal bowel sounds Extremities no pedal edema noted Urinary Catheter Management: Maldonado: Cath Placed During This Visit: yes Reason for Continuing Indwelling Catheter: Other Urinary Catheter Date of Insertion: 02/18/24 Urinary Catheter Time of Insertion: 23:30 Data 02/21/24 05:20 02/21/24 05:20 Micro: Microbiology 02/19/24 01:04 Blood Culture - Final Blood Proteus mirabilis A&P Assessment and plan (1) Old age, dementia: (2) Thrombocytopenia: (3) Hypertension: Qualifiers: Hypertension type: essential hypertension Qualified Code(s): I10 - Essential (primary) hypertension (4) Pneumonia: (5) Elevated lactic acid level: (6) Pyelonephritis of right kidney: (7) Sepsis: (8) Acute encephalopathy: (9) Acute kidney injury: (10) Urinary tract infection: Qualifiers: Hematuria presence: with hematuria Urinary tract infection type: acute cystitis Qualified Code(s): N30.01 - Acute cystitis with hematuria (11) Hypoalbuminemia due to protein-calorie malnutrition: Plan Plan for the day: Continue care as per comfort care/hospice measure status. Vitals as per protocol. Family aware the plan of care Case management consulted for possible transfer to SNF with hospice. SCDs for DVT prophylaxis. No anticoagulation secondary to markedly low platelets at less than 50,000. Attestations 2 Medical Necessity Statement*: Patient waiting to be discharged with hospice care Time Spent in Patient Care: 30 minutes Coding Level of Care Code Acute Code for Chg Fwd High MDM includes number and complexity of problems actively addressed during encounter as documented Diagnoses Old age, dementia F03.90 Thrombocytopenia D69.6 Essential hypertension I10 Hypertension type: essential hypertension Pneumonia J18.9 Elevated lactic acid level R79.89 Pyelonephritis of right kidney N12 Sepsis A41.9 Acute encephalopathy G93.40 Acute kidney injury N17.9 Urinary tract infection N30.01 Hematuria presence: with hematuria Urinary tract infection type: acute cystitis Hypoalbuminemia due to protein-calorie malnutrition E88.09; E46 Time Spent (min) 30
[2024-02-23] MEDS: morphine 4 mg/mL SDV 1 mL IVP (22:12)
[2024-02-24 04:11] VITALS: BP 116/72; PULSE 87; RESP 22; TEMP 36.4; O2SAT 92
[2024-02-24 05:53] VITALS: RESP 22; O2SAT 92
[2024-02-24] MEDS: morphine 4 mg/mL SDV 1 mL IVP (05:53)
[2024-02-24 06:00] VITALS: PULSE 83
[2024-02-24 08:00] VITALS: BP 120/63; PULSE 95; RESP 23; O2SAT 85
[2024-02-24] MEDS: pantoprazole 40 mg SDV IVP (08:42)
[2024-02-24] MEDS: morphine 10 mg/0.5 mL oral liq UD SUBLINGUAL ×3 (08:42→14:36)
--- NOTE | 2024-02-24 11:39 | P.DS_ITS ---
Discharge Providers Date of Admission: 02/19/24 08:40 Date of Discharge: February 24, 2024 Attending Provider at Admission: Ricardo Schafer MD Attending Provider at Discharge: Evie Brandon MD Primary Care Provider: Ramila Jasso MD Diagnoses at Discharge Discharge Diagnosis (1) Old age, dementia: Status: Acute (2) Thrombocytopenia: Status: Acute (3) Hypertension: Status: Acute Qualifiers: Hypertension type: essential hypertension Qualified Code(s): I10 - Essential (primary) hypertension (4) Pneumonia: Status: Acute (5) Elevated lactic acid level: Status: Acute (6) Pyelonephritis of right kidney: Status: Acute (7) Sepsis: Status: Acute (8) Acute encephalopathy: Status: Acute (9) Acute kidney injury: Status: Acute (10) Urinary tract infection: Status: Acute Qualifiers: Hematuria presence: with hematuria Urinary tract infection type: acute cystitis Qualified Code(s): N30.01 - Acute cystitis with hematuria (11) Hypoalbuminemia due to protein-calorie malnutrition: Status: Acute Reason for Visit Reason for Visit: AMS Brief History: 88 year old female with a past medical h istory of atrial fibrillation not on anticoagulation?, GERD, hypothyroidism, dyslipidemia, who presents to [facility] due to altered mental status. she does have significant right CVA tenderness , in the emergency room her blood pressures are quite soft maps around 65, having low-grade fevers, intermittently tachycardic, 2 L, patient was have found to have sepsis secondary to UTI, with HARRISON, there is also concern for pneumonia. According to ER provider patient went to sleep around 1130, and does not bother her until 9 PM, when her daughter tried to wake her up, she was unable to wake up, was only responsive to painful stimuli, on arrival patient was only responsive to painful stimuli was given fluid bolus, Zosyn, Hospital Course Hospital Course patient has pyelonephritis with left-sided hydronephrosis in the setting of possible mass causing ureteral obstruction with concerns for pyelonephritis/cystitis from Proteus mirabilis and blood cultures being positive for Proteus mirabilis as well. Discussed treatment contains of 2 parts 1 would be antibiotic which is to control the infection of the wrist surgical management to relieve obstruction at left hydronephrosis for source control. Chances of patient's recovery without surgical intervention is on the lower side with high risk of recurrence or continuation of septic shock. Discussed surgical procedure for now would mean cystoscopy and possible stent placement but she might need further procedures depending on clinical improvement after the stent placement. Discussed about quality of life versus quantity of life. Unfortunately with treatment patient's life can be prolonged but quality of life would not improve with just poor in setting of advanced dementia, valvular disorder, cardiomyopathy, macular degeneration and atrial fibrillation. Family verbalized understanding and had few questions which were answered. After discussing amongst himself later family decided that patient is DNR/DNI and would not have wanted any kind of surgical procedures and want to go ahead with setting of hospice/comfort care. They would most likely want to have hospice care Physical Exam Narrative: She is drowsy but opens eyes to verbal stimuli, none comprehensive Chest clear to auscultation bilaterally Cardiovascular normal heart sounds Abdomen soft and nontender nondistended normal bowel sounds Extremities no pedal edema noted Urinary Catheter Management: Maldonado: Cath Placed During This Visit: yes Reason for Continuing Indwelling Catheter: Other Urinary Catheter Date of Insertion: 02/18/24 Urinary Catheter Time of Insertion: 23:30 Discharge Data Studies Completed and Pending Completed Studies During Hospitalization Category Date Time Status CT abdomen pelvis wo con 16439 Stat Cat Scan 02/19/24 04:[address] head wo con* [id number] Stat Cat Scan 02/18/24 23:20 Completed CTA chest [CT angio chest PE protcl [id number]] Stat Cat Scan 02/19/24 01:35 Completed XR chest 1V portable [id number] Stat Exams 02/18/24 23:20 Completed Pending at discharge Category Date Time Status Sputum Culture and Gram Stain Stat Lab 02/19/24 05:28 Uncollected Radiology Impressions Chest X-Ray 02/18/24 23:20 IMPRESSION: 1. Numerous bilateral ill-defined small, subcentimeter nodular opacities throughout both lungs, new/progressed compared to the prior. Finding is nonspecific. Findings could represent inflammation, or infection such as bronchopneumonia, sequela of pulmonary edema, or underlying pulmonary nodules. Continued attention on follow-up is recommended. 2. Cardiomegaly and mild pulmonary edema. 3. Post kyphoplasty changes in the thoracolumbar spine. Head CT 02/18/24 23:20 IMPRESSION: 1. No evidence of acute intracranial hemorrhage, mass effect, or midline shift. 2. Please note that CT is insensitive to none hemorrhagic strokes an MRI of the brain should be considered if there is clinical concern for acute cerebral ischemia. Chest CTA 02/19/24 01:35 IMPRESSION: 1. Limited examination due to contrast timing and artifact, no saddle pulmonary embolus. No pulmonary embolus within the main pulmonary arteries. No secondary evidence to suggest hemodynamically significant pulmonary embolus. 2. Diffuse pulmonary vascular congestion with associated small bilateral pleural effusions and compressive atelectasis. Superimposed infection can not be ruled out. 3. Age-indeterminate wedge deformities of the T11 and T9 vertebral bodies. Correlate with point tenderness. 4. Additional findings as above. COMMENTS: Consistent with the [employer]'s Incidental Findings Committee white paper (J Am Nuria Radiol 2018): Any incidental renal lesion less than 1 cm or classified as too small to characterize, or any incidental cystic renal lesion characterized as simple-appearing, is likely benign. No follow-up imaging is recommended for these lesions per consensus recommendations based on imaging criteria. Abdomen/Pelvis CT 02/19/24 04:53 IMPRESSION: 1. Retained contrast of the left renal cortex with associated [id number] left hydronephrosis as well as prominence of the proximal left ureter. At the proximal left ureter there are ill-defined regions of nodular soft tissue density suggesting possible underlying obstructing mass/lesion. Three-phase CT can be obtained for better characterization. 2. Findings consistent with cirrhosis and portal hypertension. 3. Mild scattered colonic wall thickening which may be result from portal hypertension, mild colitis can present similarly. 4. Please see concurrently performed CT pulmonary angiogram for intrathoracic findings and impression. 5. Adnexal cysts as detailed above. COMMENTS: Consistent with the [employer]'s Incidental Findings Committee white paper (J Am Nuria Radiol 2018): Any incidental renal lesion less than 1 cm or classified as too small to characterize, or any incidental cystic renal lesion characterized as simple-appearing, is likely benign. No follow-up imaging is recommended for these lesions per consensus recommendations based on imaging criteria. Laboratory Results WBC 13.48 10^3/uL (3.29-11.43) H 02/21/24 05:20 RBC 4.06 10^6/uL (3.85-5.65) 02/21/24 05:20 Hgb 13.50 g/dL (11.27-16.99) 02/21/24 05:20 Hct 39.9 % (36-47) 02/21/24 05:20 MCV 98.3 fl (85-98) H 02/21/24 05:20 MCH 33.3 pg (27-33) H 02/21/24 05:20 MCHC 33.8 g/dL (30-55) D 02/21/24 05:20 RDW 16.8 % (12.1-15.1) H 02/21/24 05:20 Plt Count 21 10^3/cmm (157-399) L* D 02/21/24 05:20 MPV 13.5 fL (7.4-10.4) H 02/21/24 05:20 Neut % (Auto) 92.2 % 02/21/24 05:20 Lymph % (Auto) 2.4 % 02/21/24 05:20 [place] % (Auto) 4.2 % 02/21/24 05:20 Eos % (Auto) 0.1 % 02/21/24 05:20 Baso % (Auto) 0.0 % 02/21/24 05:20 Neut # (Auto) 12.43 10^3/uL (1.8-7.7) H 02/21/24 05:20 Lymph # (Auto) 0.3 10^3/uL (0.8-4.8) L 02/21/24 05:20 [place] # (Auto) 0.6 10^3/uL (0.2-0.9) 02/21/24 05:20 Eos # (Auto) 0.0 10^3/uL (0.0-0.8) 02/21/24 05:20 Baso # (Auto) 0.0 10^3/uL (0.0-0.1) 02/21/24 05:20 Nucleated RBC % (auto) 0 % 02/21/24 05:20 Total Counted 100 (0-100) 02/19/24 11:25 Atypical Lymphs % 0.0 % (0-5) 02/19/24 11:25 Absolute Neutrophils 5.9 10^3/cmm (1.4-6.5) 02/19/24 11:25 Segmented Neutrophils 57 % 02/19/24 11:25 Abs Segm Neuts (Man) 4.6 10/cmm (1.6-7.1) 02/19/24 11:25 Band Neutrophils 15.0 % 02/19/24 11:25 Abs Band Neuts (Man) 1.2 10^3/cmm (0.0-1.2) 02/19/24 11:25 Absolute Lymphocytes 0.5 10^3/cmm (1.2-3.4) L 02/19/24 11:25 Lymphocytes (Manual) 6 % 02/19/24 11:25 Monocytes (Manual) 5.0 % 02/19/24 11:25 Absolute Monocytes 0.4 10^3/cmm (0.1-0.6) 02/19/24 11:25 Eosinophils (Manual) 1 % 02/19/24 11: Absolute Eosinophils 0.1 10^3/cmm (0.0-0.7) 02/19/24 11: Basophils (Manual) 0.0 % 02/19/24 11: Absolute Basophils 0.0 10^3/cmm (0.0-0.2) 02/19/24 11:25 Metamyelocytes 11.0 % 02/19/24 11:25 Myelocytes 4.0 % 02/19/24 11:25 Promyelocytes 1.0 % 02/19/24 11:25 Nucleated RBCs # 0.0 /100WBC 02/21/24 05:20 Smudge Cells 1+ H 02/19/24 11:25 Toxic Vacuolation Trace 02/18/24 23:34 Platelet Estimate Decreased (Normal) L 02/19/24 11:25 Anisocytosis 1+ H 02/19/24 11:25 Macrocytosis 2+ H 02/19/24 11:25 Ovalocytes 1+ H 02/19/24 11:25 PT 16.00 SECONDS (12.1-14.9) H 02/18/24 23:34 INR 1.24 (0.8-1.2) H 02/18/24 23:34 Specimen Type Arterial 02/18/24 23:30 Sample Site Radial, left 02/18/24 23:30 ABG pH 7.43 (7.35-7.45) 02/18/24 23:30 ABG pCO2 34.3 mmHg (35-45) L 02/18/24 23:30 ABG pO2 68.7 mmHg (80.0-100.0) L 02/18/24 23:30 ABG HCO3 22.9 mmol/L (22-26) 02/18/24 23:30 ABG O2 Saturation 95.2 02/18/24 23:30 ABG Base Excess -0.9 mmol/L (-2.0-2.0) 02/18/24 23:30 Luis Manuel Test Pos 02/18/24 23:30 A-a O2 Gradient 4.7 mmHg (5-10) L 02/18/24 23:30 Hematocrit 39.5 % (37-47) 02/18/24 23:30 Hgb O2 Saturation 93.1 % (95-100) L 02/18/24 23:30 Carboxyhemoglobin 1.5 %THgb (0.4-20.1) 02/18/24 23:30 Methemoglobin 0.8 % (0.4-1.5) 02/18/24 23:30 Total Hemoglobin 12.9 g/dL (12-16) 02/18/24 23:30 Sodium 148.0 mmol/L (131-143) H 02/18/24 23:30 Potassium 3.9 mmol/L (3.5-5.0) 02/18/24 23:30 Glucose 109.0 mg/dL (70-115) 02/18/24 23:30 Ionized Calcium 1.2 mmol/L (1.1-1.4) 02/18/24 23:30 O2 Delivery Device Nc 02/18/24 23:30 O2 Liters/Min 2.0 % 02/18/24 23:30 [employer]her And Crusher Tender ID [email or web address] 02/18/24 23:30 Sodium 142 mmol/L (136-145) 02/21/24 05:20 Potassium 4.9 mmol/L (3.5-5.1) 02/21/24 05:20 Chloride 109 mmol/L (98-107) H 02/21/24 05:20 Carbon Dioxide 21 mmol/L (22-29) L 02/21/24 05:20 Anion Gap 16.9 (5-19) 02/21/24 05:20 BUN 64 mg/dL (8-23) H 02/21/24 05:20 Creatinine 2.1 mg/dL (0.5-0.9) H 02/21/24 05:20 GFR Calculation Not Reportable 02/21/24 05:20 Glucose 92 mg/dL (65-115) 02/21/24 05:20 Calculated Osmolality 312 mOsm/kg (285-295) H 02/21/24 05:20 Lactic Acid 5.3 mmol/L (0.5-2.2) H* 02/18/24 23:34 Lactic Acid (Sepsis) 5.3 mmol/L (0.5-2.2) H* 02/19/24 02:06 Calcium 8.9 mg/dL (8.5-10.5) 02/21/24 05:20 Phosphorus 3.0 mg/dL (2.5-4.5) 02/18/24 23:34 Magnesium 2.1 mg/dL (1.7-2.3) 02/21/24 05:20 Total Bilirubin 1.9 mg/dL (0.15-1.2) H 02/21/24 05:20 AST 33 U/L (0-32) H 02/21/24 05:20 ALT 25 U/L (0-33) 02/21/24 05:20 Alkaline Phosphatase 196 U/L (35-105) H 02/21/24 05:20 Ammonia 32 umol/L (11-51) 02/21/24 05:20 Troponin T Baseline 34 ng/L (0-10) H 02/18/24 22:07 Troponin T 120 Minute 36.39 ng/L (0-10) H 02/19/24 00:35 Delta Troponin T 2.39 ABS# (0-10) 02/19/24 00:35 Troponin T Hi Sens 6Hr 40.47 ng/L (0-10) H 02/19/24 04:05 Troponin T Hi Sens 6Hr Delta 6.47 ng/L (0-12) 02/19/24 04:05 C-Reactive Protein 19.0 mg/L (0.0-4.9) H 02/18/24 23:34 NT-Pro-B Natriuret Pep 25559 pg/mL (0-450) H 02/18/24 23:34 Total Protein 5.4 g/dL (6.6-8.7) L 02/21/24 05:20 Albumin 2.7 g/dL (3.5-5.2) L 02/21/24 05:20 Globulin 2.7 g/dL (1.3-4.6) 02/21/24 05:20 Procalcitonin 24.82 ng/mL (0-0.5) H 02/18/24 23:34 TSH 0.67 uIU/mL (0.27-4.20) 02/18/24 23:34 Urine Color Dark yellow (Yellow) 02/18/24 23:30 Urine Appearance Cloudy (CLEAR) A 02/18/24 23:30 Urine pH 8 (5-7) H 02/18/24 23:30 Ur Specific [place] 1.015 (1.005-1.030) 02/18/24 23:30 Urine Protein 1+ (Negative) H 02/18/24 23:30 Urine Glucose (UA) Norm (Normal) 02/18/24 23:30 Urine Ketones 1+ (Negative) H 02/18/24 23:30 Urine Blood 3+ (Negative) H 02/18/24 23:30 Urine Nitrate Negative (Negative) 02/18/24 23:30 Urine Bilirubin 1+ (Negative) H 02/18/24 23:30 Prot Sulfosalicylic Acd Positive (Negative) 02/18/24 23:30 Urine Urobilinogen 4 mg/dL (Negative) H 02/18/24 23:30 Ur Leukocyte Esterase 2+ (Negative) H 02/18/24 23:30 Urine RBC 5-10 /hpf (0-2) H 02/18/24 23:30 Urine WBC 40-55 /hpf (0-5) H 02/18/24 23:30 Ur Squamous Epith Cells 5-10 /hpf (0-5) H 02/18/24 23:30 Amorphous Sediment Not Reportable 02/18/24 23:30 Urine Bacteria 3+ /hpf (NONE) H 02/18/24 23:30 Urine Mucus 3+ /hpf 02/18/24 23:30 Influenza Type A Ag negative (Negative) 02/19/24 00:06 Influenza Type B Ag negative (Negative) 02/19/24 00:06 SARS-CoV-2 Ag (Rapid) negative (Negative) 02/19/24 00:06 Vitals Last Vital Signs Temp 97.6 F 02/24/24 04:11 Pulse 95 04/09/24 08:00 Resp 23 H 02/24/24 08:00 BP 120/63 02/24/24 08:00 Pulse Ox 85 L 02/24/24 08:00 O2 Del Method Nasal Cannula 02/24/24 08:00 O2 Flow Rate 2 02/23/24 09:08 Discharge Plan Discharge Patient Disposition: Hospice - Home Condition: Serious Prescriptions: Continued ferrous sulfate 325 mg (65 mg iron) tablet,delayed release (DR/EC) 325 mg PO DAILY 90 Days Qty: 90 3RF pantoprazole 40 mg tablet,delayed release (DR/EC) 40 mg PO DAILY 90 Days Qty: 90 2RF lovastatin 20 mg tablet 20 mg PO DAILY Qty: 90 2RF levothyroxine 100 mcg tablet 100 mcg PO DAILY 90 Days Qty: 90 2RF gabapentin 400 mg capsule 400 mg PO DAILY 90 Days Qty: 90 2RF cholecalciferol (vitamin D3) 1,250 mcg (50,000 unit) capsule 1,250 mcg PO Q7D Rx Instructions: on friday Discontinued furosemide 20 mg tablet 20 mg PO DAILY 90 Days Qty: 90 2RF Forteo 20 mcg/dose (600mcg/2.4mL) pen injector 20 mcg SUBCUT DAILY (DME) pen needle, diabetic [Comfort EZ Pen [place]] 31 gauge x 1/4 needle See Rx Instructions .Route Qty: 100 5RF Rx Instructions: use once daily with forteo pen alcohol swabs Pads, Medicated 1 pad topical DAILY Qty: 100 1RF Discharge Orders: Discharge Order (Routine); Ordered 02/24/24 Ordered By: Evie Brandon Referrals: Ramila Jasso MD [Primary Care Provider] - Discharge Diet: Clear Liquid Discharge Activity: Bedrest Patient Instructions: Hospice Care (GEN), Altered Mental Status (ED), Opioid Safety Discharge Attestations Time Spent in Discharge Care*: less than 30 min Quality Metrics Clinical Quality Measures [ No reported AMI, CVA or VTE this stay] Coding Level of Care Code Acute Code for Chg Fwd Diagnoses Old age, dementia F03.90 Thrombocytopenia D69.6 Essential hypertension I10 Hypertension type: essential hypertension Pneumonia J18.9 Elevated lactic acid level R79.89 Pyelonephritis of right kidney N12 Sepsis A41.9 Acute encephalopathy G93.40 Acute kidney injury N17.9 Urinary tract infection N30.01 Hematuria presence: with hematuria Urinary tract infection type: acute cystitis Hypoalbuminemia due to protein-calorie malnutrition E88.09; E46 Time Spent (min) 30
[2024-02-24] MEDS: atropine 1% op soln 2 mL Btl 3 DROP SUBLINGUAL (12:54)
[2024-02-24 14:54] VITALS: BP 120/63; PULSE 95; RESP 23; TEMP 36.4; O2SAT 85
== END 2024-02-24 14:55 | disposition hospice, home (50) | DRG 871 ==
LOC: ER 02-19 09:10 → ICU 02-19 09:45 → MEDSURG 02-21 13:29
PROVIDERS: Emergency Medicine; Family Medicine; Admitting Provider Internal Medicine; Emergency Provider Family Medicine; PCP Family Medicine; Visit Provider Internal Medicine
DX: A41.59 Other Gram-negative sepsis (principal); J18.9 Pneumonia, unspecified organism; J96.01 Acute respiratory failure with hypoxia; N12 Tubulo-interstitial nephritis, not specified as acute or chronic; N13.30 Unspecified hydronephrosis; N17.9 Acute kidney failure, unspecified; G93.40 Encephalopathy, unspecified; E46 Unspecified protein-calorie malnutrition; N30.90 Cystitis, unspecified without hematuria; B96.4 Proteus (mirabilis) (morganii) as the cause of diseases classified elsewhere; F03.90 Unspecified dementia, unspecified severity, without behavioral disturbance, psychotic disturbance, mood disturbance, and anxiety; Z66 Do not resuscitate; Z51.5 Encounter for palliative care; I10 Essential (primary) hypertension; D69.6 Thrombocytopenia, unspecified; E88.09 Other disorders of plasma-protein metabolism, not elsewhere classified; E03.9 Hypothyroidism, unspecified
CPT/HCPCS: 36415; 36600; 51702; 70450; 71045; 71275; 74176; 80051; 80053; 81001; 81003; 82140; 82330; 82805; 83605; 83735; 83880; 84100; 84145; 84443; 84484; 85007; 85025; 85610; 86140; 87040; 87077; 87086; 87150; 87186; 87205; 87426; 87804; 93005; 96365; 96367; 96374; 96375; 96376; 99285; C9113; J0131; J1940; J2185; J2270; J2543; J3370; J3475; J7030; J7050; Q9967